=== PATIENT | female | born 1950 | race Caucasian/White ===

== ENCOUNTER 2019-01-31 13:49 | Inpatient (IN) ==
[2019-01-31] MEDS ORDERED: Naloxone 0.4 MG/ML INJ IVP PRN (17:02)
[2019-01-31] MEDS ORDERED: Artificial Tears SOLN 15 ML BOTTLE BOTH EYES PRN (17:21)
[2019-01-31] MEDS ORDERED: *HR* Dextrose 50 % in Water (Syg) 50 ML SYRINGE IVP PRN (17:27)
[2019-01-31] MEDS ORDERED: D5% in Water 1,000 ML IVC PRN (17:27)
[2019-01-31] MEDS ORDERED: Dextrose Gel 15 GM/37.5 ML TUBE PO PRN ×2 (17:27)
[2019-01-31 17:53] LABS: Estimated Average Glucose 117 mg/dl
[2019-01-31] MEDS: FentaNYL (PF) 1,000 MCG in 0.9 % Sodium Chloride 80 ML IVC SCH (18:26)
[2019-01-31] MEDS: Insulin LISPRO 300 UNITS/3 ML VIAL SQ SCH (18:37)
[2019-01-31] MEDS: Famotidine 20 MG/2 ML VIAL IVP SCH (18:38)
[2019-01-31] MEDS: *HR* Heparin 5,000 UNIT/ML VIAL SQ SCH (18:38)
[2019-01-31] MEDS: Piperacillin/Tazobactam 3.375 GM in 0.9 % Sodium Chloride Mini Bag 100 ML IVPB SCH (18:39)
[2019-01-31 18:57] LABS: ABG Base Excess 17 mEq/L (-2 to 3); ABG HCO3 46 mEq/L (21-27); ABG Oxygen Saturation 89 % (95-98); ABG PCO2 69 mmHg (35-45); ABG PH 7.43 pH Units (7.32-7.45); ABG PO2 59 mmHg (85-104); ABG TCO2 48 mEq/L (20-26); Blood Gas VT 500 cc
[2019-01-31 19:03] LABS: Adenovirus Not Detected (Not Detect); Bordetella Pertussis Not Detected (Not Detect); Chlamydophila pneumoniae Not Detected (Not Detect); Coronavirus 229E Not Detected (Not Detect); Coronavirus HKU1 Not Detected (Not Detect); Coronavirus NL63 Not Detected (Not Detect); Coronavirus OC43 Not Detected (Not Detect); Human Metapneumovirus Not Detected (Not Detect); Human Rhinovirus/Enterovirus Not Detected (Not Detect); Influenza A Subtype 2009 H1 Not Detected (Not Detect); Influenza A Untypeable Not Detected (Not Detect); Influenza B Not Detected (Not Detect); Mycoplasma pneumoniae Not Detected (Not Detect); Parainfluenza Virus 1 Not Detected (Not Detect); Parainfluenza Virus 2 Not Detected (Not Detect); Parainfluenza Virus 3 Not Detected (Not Detect); Parainfluenza Virus 4 Not Detected (Not Detect); Respiratory Syncytial Virus Not Detected (Not Detect)
[2019-01-31] MEDS: Chlorhexidine Rinse 15 ML MOUTHWASH MM SCH (22:17)
[2019-01-31] MEDS: Artificial Tears SOLN 15 ML BOTTLE BOTH EYES SCH (22:17)
[2019-02-01] MEDS: Artificial Tears SOLN 15 ML BOTTLE BOTH EYES SCH ×7 (00:31→23:09)
[2019-02-01] MEDS: Piperacillin/Tazobactam 3.375 GM in 0.9 % Sodium Chloride Mini Bag 100 ML IVPB SCH ×4 (00:32→23:09)
[2019-02-01] MEDS: MethylPREDNISolone 40 MG/ML VIAL IVP SCH ×4 (00:32→23:09)
[2019-02-01] MEDS: Insulin LISPRO 300 UNITS/3 ML VIAL SQ SCH ×5 (00:32→23:09)
[2019-02-01 05:05] LABS: ABG Base Excess 15 mEq/L (-2 to 3); ABG HCO3 43 mEq/L (21-27); ABG Oxygen Saturation 90 % (95-98); ABG PCO2 68 mmHg (35-45); ABG PH 7.41 pH Units (7.32-7.45); ABG PO2 62 mmHg (85-104); ABG TCO2 45 mEq/L (20-26); Blood Gas Modality ASSIST CONTROL; Blood Gas VT 450 cc
[2019-02-01] MEDS: Famotidine 20 MG/2 ML VIAL IVP SCH ×2 (06:38→15:58)
[2019-02-01] MEDS: *HR* Heparin 5,000 UNIT/ML VIAL SQ SCH ×2 (06:38→15:58)
[2019-02-01] MEDS: Chlorhexidine Rinse 15 ML MOUTHWASH MM SCH ×2 (07:15→20:01)
[2019-02-01 07:46] LABS: Basophils % 0.2 %; Hematocrit 41.4 % (35.3-44.9); Hemoglobin 12.9 g/dL (11.5-15.4); Immature Granulocytes % 0.4 % (0-4); Lymphocytes # 0.6 K/mcL (0.6-4.6); Lymphocytes % 10.6 %; Mean Corpuscular HGB Conc 31.2 g/dL (31.6-35.5); Mean Corpuscular Hemoglobin 30.1 pg (28.0-33.3); Mean Corpuscular Volume 96.7 fL (83.0-100.0); Mean Platelet Volume 9.8 fL (9.4-12.4); Monocytes # 0.3 K/mcL (0.0-1.3); Monocytes % 5.9 %; Neutrophils # 4.6 K/mcL (1.6-8.9); Platelet Count 170 K/mcL (140-400); Red Blood Count 4.28 M/mcL (3.82-4.97); Red Cell Distribution Width 12.5 % (11.5-14.5); Segmented Neutrophils % 82.9 %; White Blood Count 5.6 K/mcL (4.3-11.1)
[2019-02-01 08:14] LABS: Large Platelets Present (Not Present); Platelet Estimate Normal (Normal); Toxic Granulation Present (Not Present)
[2019-02-01 09:47] LABS: BUN/Creatinine Ratio 40 (6-26); Blood Urea Nitrogen 22 mg/dL (8-23); Calcium 10.1 mg/dL (8.6-10.3); Carbon Dioxide 41 mEq/L (23-29); Chloride 90 mEq/L (98-107); Glucose 122 mg/dL (70-105); Magnesium 1.5 mg/dL (1.6-2.6); Osmolality,Calculated 291 (280-300); Sodium 138 mEq/L (136-145); eGFR For African Americans > 60 (> 60); eGFR For Non-African Americans > 60 (> 60)
[2019-02-01] MEDS ORDERED: Furosemide 20 MG/2 ML VIAL IVP ONE (14:41)
[2019-02-01] MEDS: Furosemide 20 MG/2 ML VIAL IVP SCH (15:02)
[2019-02-01] MEDS: FentaNYL (PF) 1,000 MCG in 0.9 % Sodium Chloride 80 ML IVC SCH ×2 (15:58→18:43)
[2019-02-02] MEDS: Artificial Tears SOLN 15 ML BOTTLE BOTH EYES SCH ×5 (03:09→20:49)
[2019-02-02] MEDS: FentaNYL (PF) 1,000 MCG in 0.9 % Sodium Chloride 80 ML IVC SCH (04:02)
[2019-02-02 04:46] LABS: ABG Base Excess 18 mEq/L (-2 to 3); ABG HCO3 44 mEq/L (21-27); ABG Oxygen Saturation 94 % (95-98); ABG PCO2 60 mmHg (35-45); ABG PH 7.48 pH Units (7.32-7.45); ABG PO2 69 mmHg (85-104); ABG TCO2 46 mEq/L (20-26); Blood Gas Modality ASSIST CONTROL; Blood Gas VT 420 cc
[2019-02-02 05:11] LABS: Basophils % 0.4 %; Hematocrit 37.6 % (35.3-44.9); Immature Granulocytes % 0.9 % (0-4); Lymphocytes # 0.6 K/mcL (0.6-4.6); Lymphocytes % 10.1 %; Mean Corpuscular HGB Conc 31.9 g/dL (31.6-35.5); Mean Corpuscular Hemoglobin 29.9 pg (28.0-33.3); Mean Corpuscular Volume 93.5 fL (83.0-100.0); Mean Platelet Volume 9.8 fL (9.4-12.4); Monocytes # 0.3 K/mcL (0.0-1.3); Monocytes % 5.8 %; Neutrophils # 4.6 K/mcL (1.6-8.9); Nucleated Red Blood Cells 0.4 /100 WBC (0); Platelet Count 187 K/mcL (140-400); Red Blood Count 4.02 M/mcL (3.82-4.97); Red Cell Distribution Width 12.7 % (11.5-14.5); Segmented Neutrophils % 82.8 %; White Blood Count 5.5 K/mcL (4.3-11.1)
[2019-02-02 05:16] LABS: Adenovirus Not Detected (Not Detect); Bordetella Pertussis Not Detected (Not Detect); Chlamydophila pneumoniae Not Detected (Not Detect); Coronavirus 229E Not Detected (Not Detect); Coronavirus HKU1 Not Detected (Not Detect); Coronavirus NL63 Not Detected (Not Detect); Coronavirus OC43 Not Detected (Not Detect); Human Metapneumovirus Not Detected (Not Detect); Human Rhinovirus/Enterovirus Not Detected (Not Detect); Influenza A Subtype 2009 H1 Not Detected (Not Detect); Influenza A Untypeable Not Detected (Not Detect); Influenza B Not Detected (Not Detect); Mycoplasma pneumoniae Not Detected (Not Detect); Parainfluenza Virus 1 Not Detected (Not Detect); Parainfluenza Virus 2 Not Detected (Not Detect); Parainfluenza Virus 3 Not Detected (Not Detect); Parainfluenza Virus 4 Not Detected (Not Detect); Respiratory Syncytial Virus Not Detected (Not Detect)
[2019-02-02] MEDS: Insulin LISPRO 300 UNITS/3 ML VIAL SQ SCH ×3 (05:18→19:48)
[2019-02-02] MEDS: Famotidine 20 MG/2 ML VIAL IVP SCH ×2 (05:21→16:32)
[2019-02-02] MEDS: *HR* Heparin 5,000 UNIT/ML VIAL SQ SCH ×2 (05:21→16:32)
[2019-02-02 05:32] LABS: BUN/Creatinine Ratio 48 (6-26); Blood Urea Nitrogen 28 mg/dL (8-23); Calcium 9.8 mg/dL (8.6-10.3); Carbon Dioxide 41 mEq/L (23-29); Chloride 90 mEq/L (98-107); Glucose 193 mg/dL (70-105); Osmolality,Calculated 295 (280-300); Potassium 3.3 mEq/L (3.5-5.1); Sodium 137 mEq/L (136-145); eGFR For African Americans > 60 (> 60); eGFR For Non-African Americans > 60 (> 60)
[2019-02-02] MEDS: Dexmedetomidine HCl 400 MCG/100 ML MLS IVC SCH (06:02)
[2019-02-02] MEDS ORDERED: Dexmedetomidine HCl 400 MCG/100 ML MLS IVC ONE (06:02)
[2019-02-02] MEDS ORDERED: Potassium Chloride Elixir 20 MEQ/15 ML UDC PO ONE (09:01)
[2019-02-02] MEDS: Chlorhexidine Rinse 15 ML MOUTHWASH MM SCH ×2 (09:27→21:07)
[2019-02-02] MEDS: Furosemide 20 MG/2 ML VIAL IVP SCH (09:28)
[2019-02-02] MEDS: MethylPREDNISolone 40 MG/ML VIAL IVP SCH ×3 (09:28→23:26)
[2019-02-02] MEDS: Piperacillin/Tazobactam 3.375 GM in 0.9 % Sodium Chloride Mini Bag 100 ML IVPB SCH ×3 (09:28→23:26)
[2019-02-02] MEDS ORDERED: Furosemide 20 MG/2 ML VIAL IVP SCH (11:01)
[2019-02-02] MEDS ORDERED: Gabapentin 300 MG CAPSULE PO SCH (21:00)
[2019-02-02] MEDS ORDERED: Furosemide 20 MG/2 ML VIAL IVP ONE (22:01)
[2019-02-02] MEDS: *HR* HYDROcodone/Acet 7.5/325 mg TABLET PO PRN (23:26)
[2019-02-02 23:47] LABS: BUN/Creatinine Ratio 47 (6-26); Blood Urea Nitrogen 28 mg/dL (8-23); Calcium 10.1 mg/dL (8.6-10.3); Carbon Dioxide 40 mEq/L (23-29); Chloride 93 mEq/L (98-107); Glucose 111 mg/dL (70-105); Osmolality,Calculated 296 (280-300); Sodium 140 mEq/L (136-145); eGFR For African Americans > 60 (> 60); eGFR For Non-African Americans > 60 (> 60)
[2019-02-03] MEDS: Artificial Tears SOLN 15 ML BOTTLE BOTH EYES SCH ×3 (02:13→11:34)
[2019-02-03] MEDS: Famotidine 20 MG/2 ML VIAL IVP SCH ×2 (05:27→17:50)
[2019-02-03] MEDS: Insulin LISPRO 300 UNITS/3 ML VIAL SQ SCH ×4 (05:27→20:38)
[2019-02-03] MEDS: *HR* Heparin 5,000 UNIT/ML VIAL SQ SCH ×2 (05:27→17:49)
[2019-02-03 05:28] LABS: Basophils % 0.5 %; Eosinophils % 0.1 %; Hematocrit 41.4 % (35.3-44.9); Immature Granulocytes % 1.3 % (0-4); Lymphocytes # 0.7 K/mcL (0.6-4.6); Lymphocytes % 8.8 %; Mean Corpuscular HGB Conc 33.3 g/dL (31.6-35.5); Mean Corpuscular Hemoglobin 29.7 pg (28.0-33.3); Mean Corpuscular Volume 89.2 fL (83.0-100.0); Monocytes % 5.3 %; Platelet Count 209 K/mcL (140-400); Red Blood Count 4.64 M/mcL (3.82-4.97); Red Cell Distribution Width 12.7 % (11.5-14.5)
[2019-02-03] MEDS: Dexmedetomidine HCl 400 MCG/100 ML MLS IVC SCH (05:36)
[2019-02-03 05:37] LABS: Hemoglobin 13.8 g/dL (11.5-15.4); Monocytes # 0.5 K/mcL (0.0-1.3); Neutrophils # 7.1 K/mcL (1.6-8.9); White Blood Count 8.4 K/mcL (4.3-11.1)
[2019-02-03 06:02] LABS: BUN/Creatinine Ratio 49 (6-26); Blood Urea Nitrogen 28 mg/dL (8-23); Calcium 10.2 mg/dL (8.6-10.3); Carbon Dioxide 41 mEq/L (23-29); Chloride 92 mEq/L (98-107); Glucose 112 mg/dL (70-105); Osmolality,Calculated 300 (280-300); Potassium 4.2 mEq/L (3.5-5.1); Sodium 142 mEq/L (136-145); eGFR For African Americans > 60 (> 60); eGFR For Non-African Americans > 60 (> 60)
[2019-02-03] MEDS: Piperacillin/Tazobactam 3.375 GM in 0.9 % Sodium Chloride Mini Bag 100 ML IVPB SCH ×3 (08:38→23:26)
[2019-02-03] MEDS: Furosemide 20 MG/2 ML VIAL IVP SCH ×2 (08:39→16:21)
[2019-02-03] MEDS: *HR* HYDROcodone/Acet 7.5/325 mg TABLET PO PRN ×2 (08:39→16:52)
[2019-02-03] MEDS: MethylPREDNISolone 40 MG/ML VIAL IVP SCH (08:39)
[2019-02-03] MEDS: Chlorhexidine Rinse 15 ML MOUTHWASH MM SCH (11:34)
[2019-02-03] MEDS ORDERED: Dextrose Gel 15 GM/37.5 ML TUBE PO PRN ×2 (11:43)
[2019-02-03] MEDS ORDERED: Artificial Tears SOLN 15 ML BOTTLE BOTH EYES PRN (11:43)
[2019-02-03] MEDS ORDERED: Naloxone 0.4 MG/ML INJ IVP PRN (11:43)
[2019-02-03] MEDS ORDERED: Insulin LISPRO 300 UNITS/3 ML VIAL SQ SCH (12:00)
[2019-02-03] MEDS ORDERED: Furosemide 20 MG/2 ML VIAL IVP SCH (17:00)
[2019-02-03] MEDS: GuaiFENesin Liq 200 MG/10 ML UDC PO PRN (18:05)
[2019-02-03] MEDS: Gabapentin 300 MG CAPSULE PO SCH (20:36)
[2019-02-03] MEDS: Ondansetron 4 MG/2 ML VIAL IVP PRN (23:27)
[2019-02-04] MEDS: *HR* HYDROcodone/Acet 7.5/325 mg TABLET PO PRN ×3 (00:28→19:51)
[2019-02-04] MEDS: Famotidine 20 MG/2 ML VIAL IVP SCH (05:18)
[2019-02-04] MEDS: *HR* Heparin 5,000 UNIT/ML VIAL SQ SCH ×2 (05:18→18:03)
[2019-02-04 06:17] LABS: BUN/Creatinine Ratio 30 (6-26); Blood Urea Nitrogen 21 mg/dL (8-23); Calcium 9.4 mg/dL (8.6-10.3); Carbon Dioxide 44 mEq/L (23-29); Chloride 87 mEq/L (98-107); Glucose 91 mg/dL (70-105); Osmolality,Calculated 287 (280-300); Potassium 3.9 mEq/L (3.5-5.1); Sodium 137 mEq/L (136-145); eGFR For African Americans > 60 (> 60); eGFR For Non-African Americans > 60 (> 60)
[2019-02-04] MEDS ORDERED: ALPRAZolam 0.5 MG TABLET PO PRN (07:41)
[2019-02-04 08:33] LABS: Hematocrit 40.6 % (35.3-44.9); Hemoglobin 14.1 g/dL (11.5-15.4); Mean Corpuscular HGB Conc 34.7 g/dL (31.6-35.5); Mean Corpuscular Hemoglobin 30.2 pg (28.0-33.3); Mean Corpuscular Volume 86.9 fL (83.0-100.0); Mean Platelet Volume 10.2 fL (9.4-12.4); Platelet Count 217 K/mcL (140-400); Red Blood Count 4.67 M/mcL (3.82-4.97); Red Cell Distribution Width 12.7 % (11.5-14.5); White Blood Count 8.8 K/mcL (4.3-11.1)
[2019-02-04 08:34] LABS: Lymphocytes # 2.8 K/mcL (0.6-4.6)
[2019-02-04] MEDS: Insulin LISPRO 300 UNITS/3 ML VIAL SQ SCH ×4 (08:37→21:39)
[2019-02-04 08:39] LABS: Monocytes # 0.5 K/mcL (0.0-1.3); Neutrophils # 5.5 K/mcL (1.6-8.9); Reactive Lymphocytes Present (Not Present)
[2019-02-04 08:40] LABS: Toxic Granulation Present (Not Present)
[2019-02-04 08:41] LABS: Basophilic Stippling 1+ (Not Present); Platelet Estimate Normal (Normal)
[2019-02-04] MEDS: Piperacillin/Tazobactam 3.375 GM in 0.9 % Sodium Chloride Mini Bag 100 ML IVPB SCH ×3 (09:05→23:52)
[2019-02-04] MEDS: Ondansetron 4 MG/2 ML VIAL IVP PRN ×2 (09:06→19:51)
[2019-02-04] MEDS: Furosemide 20 MG/2 ML VIAL IVP SCH ×2 (09:06→18:03)
[2019-02-04] MEDS: Metoprolol 100 MG TABLET PO SCH ×2 (09:06→19:51)
[2019-02-04] MEDS: Gabapentin 300 MG CAPSULE PO SCH ×2 (09:06→19:52)
[2019-02-04] MEDS: Aspirin Enteric Coated 325 MG Tablet PO SCH (09:07)
[2019-02-04] MEDS: Cyanocobalamin (B-12) 1,000 MCG TABLET PO SCH (09:07)
[2019-02-04] MEDS: Methylphenidate HCl 10 MG TABLET PO SCH ×2 (10:02→15:06)
[2019-02-04] MEDS: Fluticasone Propionate Nasal 50 MCG/SPRAY BOTTLE NS SCH ×2 (10:02→21:39)
[2019-02-04] MEDS: Budesonide/Formoterol 160/4.5 1 PUFF INH IH SCH ×2 (11:15→19:30)
[2019-02-04] MEDS: GuaiFENesin Liq 200 MG/10 ML UDC PO PRN (15:12)
[2019-02-04] MEDS: MethylPREDNISolone 40 MG/ML VIAL IVP SCH (18:03)
[2019-02-05] MEDS: *HR* Heparin 5,000 UNIT/ML VIAL SQ SCH ×2 (05:59→17:27)
[2019-02-05] MEDS: MethylPREDNISolone 40 MG/ML VIAL IVP SCH ×2 (05:59→17:27)
[2019-02-05 06:35] LABS: BUN/Creatinine Ratio 30 (6-26); Blood Urea Nitrogen 19 mg/dL (8-23); Calcium 9.4 mg/dL (8.6-10.3); Carbon Dioxide 45 mEq/L (23-29); Chloride 87 mEq/L (98-107); Glucose 141 mg/dL (70-105); Magnesium 1.6 mg/dL (1.6-2.6); Osmolality,Calculated 289 (280-300); Sodium 137 mEq/L (136-145); eGFR For African Americans > 60 (> 60); eGFR For Non-African Americans > 60 (> 60)
[2019-02-05] MEDS: Budesonide/Formoterol 160/4.5 1 PUFF INH IH SCH ×2 (07:48→23:29)
[2019-02-05] MEDS: Insulin LISPRO 300 UNITS/3 ML VIAL SQ SCH ×4 (08:06→20:43)
[2019-02-05] MEDS: Furosemide 20 MG/2 ML VIAL IVP SCH ×2 (09:50→17:27)
[2019-02-05] MEDS: Methylphenidate HCl 10 MG TABLET PO SCH ×2 (09:50→12:16)
[2019-02-05] MEDS: Aspirin Enteric Coated 325 MG Tablet PO SCH (09:51)
[2019-02-05] MEDS: Cyanocobalamin (B-12) 1,000 MCG TABLET PO SCH (09:51)
[2019-02-05] MEDS: Piperacillin/Tazobactam 3.375 GM in 0.9 % Sodium Chloride Mini Bag 100 ML IVPB SCH (09:51)
[2019-02-05] MEDS: Metoprolol 100 MG TABLET PO SCH ×2 (09:51→20:43)
[2019-02-05] MEDS: Gabapentin 300 MG CAPSULE PO SCH ×2 (09:51→20:42)
[2019-02-05] MEDS: Fluticasone Propionate Nasal 50 MCG/SPRAY BOTTLE NS SCH (09:51)
[2019-02-05] MEDS ORDERED: Insulin DETEMIR 100 UNIT/ML X5UNITS SQ SCH (21:00)
[2019-02-06 05:02] LABS: Basophils # 0.1 K/mcL (0.0-0.2); Basophils % 0.4 %; Eosinophils % 0.1 %; Hematocrit 45.2 % (35.3-44.9); Hemoglobin 14.7 g/dL (11.5-15.4); Immature Granulocytes % 4.4 % (0-4); Lymphocytes # 1.8 K/mcL (0.6-4.6); Lymphocytes % 16.3 %; Mean Corpuscular HGB Conc 32.5 g/dL (31.6-35.5); Mean Corpuscular Hemoglobin 29.5 pg (28.0-33.3); Mean Corpuscular Volume 90.6 fL (83.0-100.0); Mean Platelet Volume 9.9 fL (9.4-12.4); Monocytes # 0.9 K/mcL (0.0-1.3); Monocytes % 7.7 %; Platelet Count 213 K/mcL (140-400); Red Blood Count 4.99 M/mcL (3.82-4.97); Red Cell Distribution Width 12.5 % (11.5-14.5); Segmented Neutrophils % 71.1 %; White Blood Count 11.3 K/mcL (4.3-11.1)
[2019-02-06] MEDS: Fluticasone Propionate Nasal 50 MCG/SPRAY BOTTLE NS SCH ×2 (05:09→08:45)
[2019-02-06 05:18] LABS: BUN/Creatinine Ratio 48 (6-26); Blood Urea Nitrogen 24 mg/dL (8-23); Calcium 9.7 mg/dL (8.6-10.3); Carbon Dioxide 42 mEq/L (23-29); Chloride 89 mEq/L (98-107); Glucose 117 mg/dL (70-105); Magnesium 1.6 mg/dL (1.6-2.6); Osmolality,Calculated 287 (280-300); Potassium 3.6 mEq/L (3.5-5.1); Sodium 136 mEq/L (136-145); eGFR For African Americans > 60 (> 60); eGFR For Non-African Americans > 60 (> 60)
[2019-02-06] MEDS: *HR* HYDROcodone/Acet 7.5/325 mg TABLET PO PRN ×2 (05:33→11:52)
[2019-02-06] MEDS: MethylPREDNISolone 40 MG/ML VIAL IVP SCH (05:33)
[2019-02-06] MEDS: *HR* Heparin 5,000 UNIT/ML VIAL SQ SCH (05:34)
[2019-02-06 07:23] VITALS: BP 146/84
[2019-02-06] MEDS: Budesonide/Formoterol 160/4.5 1 PUFF INH IH SCH (07:28)
[2019-02-06] MEDS: Insulin LISPRO 300 UNITS/3 ML VIAL SQ SCH ×2 (07:56→11:47)
[2019-02-06] MEDS: Furosemide 20 MG/2 ML VIAL IVP SCH (08:43)
[2019-02-06] MEDS: Aspirin Enteric Coated 325 MG Tablet PO SCH (08:44)
[2019-02-06] MEDS: Metoprolol 100 MG TABLET PO SCH (08:44)
[2019-02-06] MEDS: Methylphenidate HCl 10 MG TABLET PO SCH ×2 (08:44→12:19)
[2019-02-06] MEDS: Cyanocobalamin (B-12) 1,000 MCG TABLET PO SCH (08:45)
[2019-02-06] MEDS: Gabapentin 300 MG CAPSULE PO SCH (08:45)
[2019-02-06] MEDS ORDERED: levoFLOXacin 750 MG TABLET PO SCH (09:00)
== END 2019-02-06 17:11 | disposition home health service (06) | DRG 133 ==
LOC: SUATTDRO 16:57 → ICNU 16:57 → 2NENU 02-03 15:03
PROVIDERS: ADMIT Internal Medicine Pulmonary Disease; ATTEND Internal Medicine

== ENCOUNTER 2019-07-17 14:20 | Inpatient (IN) ==
[2019-07-17] MEDS ORDERED: Acetaminophen 325 MG TABLET PO PRN (17:29)
[2019-07-17] MEDS ORDERED: Ondansetron 4 MG/2 ML VIAL IVP PRN (17:29)
[2019-07-17] MEDS ORDERED: Naloxone 0.4 MG/ML INJ IVP PRN (17:29)
[2019-07-17] MEDS ORDERED: *HR* Heparin 5,000 UNIT/ML VIAL IVP PRN ×2 (17:41→17:49)
[2019-07-17] MEDS ORDERED: Nitroglycerin 0.4 MG TAB.SUBL SL PRN (18:00)
[2019-07-17] MEDS: Heparin 25,000 UNIT/250 ML D5W 25,000 UNIT/250 ML IV.SOLN IVC SCH (18:33)
[2019-07-17] MEDS ORDERED: Isovue-370 500 ML BOTTLE IVP ONE (18:46)
[2019-07-17] MEDS ORDERED: Levalbuterol Neb 0.63 MG/3 ML IH PRN (19:25)
[2019-07-17] MEDS ORDERED: *HR* Dextrose 50 % in Water (Syg) 50 ML SYRINGE IVP PRN (19:27)
[2019-07-17] MEDS ORDERED: D5% in Water 1,000 ML IVC PRN (19:27)
[2019-07-17] MEDS ORDERED: Dextrose Gel 15 GM/37.5 ML TUBE PO PRN ×2 (19:27)
[2019-07-17 21:03] LABS: Hematocrit 46.9 % (35.3-44.9); Hemoglobin 13.9 g/dL (11.5-15.4); Mean Corpuscular HGB Conc 29.6 g/dL (31.6-35.5); Mean Corpuscular Hemoglobin 29.4 pg (28.0-33.3); Mean Corpuscular Volume 99.2 fL (83.0-100.0); Mean Platelet Volume 9.1 fL (9.4-12.4); Platelet Count 164 K/mcL (140-400); Red Blood Count 4.73 M/mcL (3.82-4.97); Red Cell Distribution Width 12.6 % (11.5-14.5); White Blood Count 5.9 K/mcL (4.3-11.1)
[2019-07-17 21:07] LABS: Heparin anti-factor XA UFH 0.31 IU/mL (0.30-0.70); Prothrombin Time 11.6 Seconds (9.4-12.1)
[2019-07-17 21:34] LABS: Troponin I < 0.03 ng/mL (< 0.04)
[2019-07-17 21:57] LABS: BUN/Creatinine Ratio 29 (6-26); Blood Urea Nitrogen 14 mg/dL (8-23); Calcium 9.4 mg/dL (8.6-10.3); Carbon Dioxide 34 mEq/L (23-29); Chloride 96 mEq/L (98-107); Glucose 114 mg/dL (70-105); Magnesium 1.8 mg/dL (1.6-2.6); Osmolality,Calculated 291 (280-300); Potassium 4.2 mEq/L (3.5-5.1); Sodium 140 mEq/L (136-145); eGFR For African Americans > 60 (> 60); eGFR For Non-African Americans > 60 (> 60)
[2019-07-17] MEDS: Insulin LISPRO 300 UNITS/3 ML VIAL SQ SCH (22:19)
[2019-07-17] MEDS: polyethylene glycoL 3350 17 GM POWD.PACK PO SCH (22:23)
[2019-07-17] MEDS: Sennosides/Docusate Sodium TABLET PO SCH (22:23)
[2019-07-18 05:44] LABS: Monocytes % 8.8 %; Red Cell Distribution Width 12.7 % (11.5-14.5)
[2019-07-18 05:45] LABS: Basophils % 0.4 %; Eosinophils # 0.1 K/mcL (0.0-0.6); Eosinophils % 2.1 %; Hematocrit 41.6 % (35.3-44.9); Hemoglobin 12.2 g/dL (11.5-15.4); Immature Granulocytes % 0.6 % (0-4); Lymphocytes # 1.4 K/mcL (0.6-4.6); Lymphocytes % 21.4 %; Mean Corpuscular HGB Conc 29.3 g/dL (31.6-35.5); Mean Corpuscular Hemoglobin 29.3 pg (28.0-33.3); Mean Corpuscular Volume 99.8 fL (83.0-100.0); Mean Platelet Volume 9.5 fL (9.4-12.4); Monocytes # 0.6 K/mcL (0.0-1.3); Neutrophils # 4.5 K/mcL (1.6-8.9); Platelet Count 226 K/mcL (140-400); Red Blood Count 4.17 M/mcL (3.82-4.97); Segmented Neutrophils % 66.7 %; White Blood Count 6.7 K/mcL (4.3-11.1)
[2019-07-18 05:55] LABS: VBG HCO3 47 mEq/L (21-27); VBG PCO2 96 mmHg (41-51); VBG PO2 92 mmHg (25-50)
[2019-07-18 05:58] LABS: Platelet Estimate Normal (Normal)
[2019-07-18 06:05] LABS: BUN/Creatinine Ratio 29 (6-26); Blood Urea Nitrogen 12 mg/dL (8-23); Calcium 9.7 mg/dL (8.6-10.3); Carbon Dioxide > 45 mEq/L (23-29); Chloride 95 mEq/L (98-107); Glucose 104 mg/dL (70-105); Magnesium 1.6 mg/dL (1.6-2.6); Osmolality,Calculated 294 (280-300); Sodium 142 mEq/L (136-145); eGFR For African Americans > 60 (> 60); eGFR For Non-African Americans > 60 (> 60)
[2019-07-18] MEDS ORDERED: Albuterol 2.5 MG/3 ML NEBULIZER IH PRN (09:35)
[2019-07-18] MEDS ORDERED: Budesonide/Formoterol 160/4.5 1 PUFF INH IH SCH (10:00)
[2019-07-18] MEDS: polyethylene glycoL 3350 17 GM POWD.PACK PO SCH (10:11)
[2019-07-18] MEDS: Sennosides/Docusate Sodium TABLET PO SCH ×2 (10:11→21:02)
[2019-07-18] MEDS: Insulin LISPRO 300 UNITS/3 ML VIAL SQ SCH ×4 (10:24→21:01)
[2019-07-18] MEDS ORDERED: methylPREDNISolone 125 MG/2 ML VIAL IVP ONE (10:36)
[2019-07-18] MEDS: Metoprolol XL (24 HR) Succ 50 MG TAB.ER.24H PO SCH (10:51)
[2019-07-18] MEDS: Aspirin 81 MG TAB.CHEW PO SCH (10:51)
[2019-07-18] MEDS: Furosemide 20 MG TABLET PO SCH ×2 (10:52→18:43)
[2019-07-18] MEDS: Ipratropium/Albuterol Neb 3 ML IH SCH ×3 (11:09→21:36)
[2019-07-18] MEDS: *HR* HYDROcodone/Acet 7.5/325 mg TABLET PO SCH ×2 (12:16→18:42)
[2019-07-18] MEDS ORDERED: Furosemide 20 MG/2 ML VIAL IVP ONE (12:16)
[2019-07-18 18:56] LABS: VBG HCO3 48 mEq/L (21-27); VBG PCO2 81 mmHg (41-51); VBG PH 7.38 pH Units (7.32-7.42); VBG PO2 185 mmHg (25-50)
[2019-07-18] MEDS: ALPRAZolam 0.5 MG TABLET PO PRN (21:02)
[2019-07-18] MEDS: Methylphenidate HCl 10 MG TABLET PO SCH (21:03)
[2019-07-18] MEDS: *HR* Rivaroxaban 10 MG TABLET PO SCH (21:03)
[2019-07-18] MEDS: Fluticasone Propionate Nasal 50 MCG/SPRAY BOTTLE NS SCH (21:05)
[2019-07-18] MEDS: Heparin 25,000 UNIT/250 ML D5W 25,000 UNIT/250 ML IV.SOLN IVC SCH (21:13)
[2019-07-19] MEDS: *HR* HYDROcodone/Acet 7.5/325 mg TABLET PO SCH ×4 (04:00→20:07)
[2019-07-19] MEDS: Ipratropium/Albuterol Neb 3 ML IH SCH ×4 (04:26→21:30)
[2019-07-19 06:23] LABS: Basophils % 0.2 %; Eosinophils % 0.7 %; Hemoglobin 11.7 g/dL (11.5-15.4); Immature Granulocytes % 0.2 % (0-4); Lymphocytes # 1.4 K/mcL (0.6-4.6); Lymphocytes % 30.9 %; Mean Corpuscular Hemoglobin 28.8 pg (28.0-33.3); Mean Corpuscular Volume 96.1 fL (83.0-100.0); Mean Platelet Volume 9.4 fL (9.4-12.4); Monocytes # 0.4 K/mcL (0.0-1.3); Monocytes % 8.6 %; Neutrophils # 2.6 K/mcL (1.6-8.9); Platelet Count 237 K/mcL (140-400); Red Blood Count 4.06 M/mcL (3.82-4.97); Red Cell Distribution Width 12.4 % (11.5-14.5); Segmented Neutrophils % 59.4 %; White Blood Count 4.4 K/mcL (4.3-11.1)
[2019-07-19 07:12] LABS: BUN/Creatinine Ratio 27 (6-26); Blood Urea Nitrogen 12 mg/dL (8-23); Calcium 9.3 mg/dL (8.6-10.3); Carbon Dioxide > 45 mEq/L (23-29); Chloride 86 mEq/L (98-107); Glucose 73 mg/dL (70-105); Magnesium 1.3 mg/dL (1.6-2.6); Osmolality,Calculated 288 (280-300); Potassium 3.3 mEq/L (3.5-5.1); Sodium 140 mEq/L (136-145); eGFR For African Americans > 60 (> 60); eGFR For Non-African Americans > 60 (> 60)
[2019-07-19] MEDS: Insulin LISPRO 300 UNITS/3 ML VIAL SQ SCH (08:09)
[2019-07-19] MEDS: Methylphenidate HCl 10 MG TABLET PO SCH ×2 (08:20→20:08)
[2019-07-19] MEDS: Metoprolol XL (24 HR) Succ 50 MG TAB.ER.24H PO SCH (08:20)
[2019-07-19] MEDS: polyethylene glycoL 3350 17 GM POWD.PACK PO SCH (08:20)
[2019-07-19] MEDS: Sennosides/Docusate Sodium TABLET PO SCH (08:20)
[2019-07-19] MEDS: Aspirin 81 MG TAB.CHEW PO SCH (08:20)
[2019-07-19] MEDS: Fluticasone Propionate Nasal 50 MCG/SPRAY BOTTLE NS SCH ×2 (08:21→20:08)
[2019-07-19] MEDS: predniSONE 20 MG TABLET PO SCH (08:21)
[2019-07-19] MEDS: Furosemide 20 MG TABLET PO SCH ×3 (08:21→15:56)
[2019-07-19] MEDS: ALPRAZolam 0.5 MG TABLET PO PRN (08:55)
[2019-07-19] MEDS: Magnesium Oxide 400 MG TABLET PO SCH ×2 (11:25→20:07)
[2019-07-19] MEDS: *HR* Rivaroxaban 10 MG TABLET PO SCH (15:44)
[2019-07-19] MEDS ORDERED: Perflutren Lipid Microsphere 1.3 ML in 0.9 % Sodium Chloride 8.7 ML IVP ONE (18:54)
[2019-07-20 02:41] LABS: Basophils % 0.3 %; Eosinophils % 0.3 %; Hemoglobin 11.4 g/dL (11.5-15.4); Immature Granulocytes % 0.2 % (0-4); Lymphocytes # 1.9 K/mcL (0.6-4.6); Lymphocytes % 30.6 %; Mean Corpuscular Hemoglobin 28.9 pg (28.0-33.3); Mean Corpuscular Volume 96.4 fL (83.0-100.0); Mean Platelet Volume 9.5 fL (9.4-12.4); Monocytes # 0.5 K/mcL (0.0-1.3); Monocytes % 7.7 %; Neutrophils # 3.7 K/mcL (1.6-8.9); Platelet Count 249 K/mcL (140-400); Red Blood Count 3.94 M/mcL (3.82-4.97); Red Cell Distribution Width 12.5 % (11.5-14.5); Segmented Neutrophils % 60.9 %; White Blood Count 6.1 K/mcL (4.3-11.1)
[2019-07-20 02:59] LABS: BUN/Creatinine Ratio 32 (6-26); Blood Urea Nitrogen 16 mg/dL (8-23); Calcium 9.2 mg/dL (8.6-10.3); Carbon Dioxide > 45 mEq/L (23-29); Chloride 90 mEq/L (98-107); Glucose 117 mg/dL (70-105); Osmolality,Calculated 294 (280-300); Potassium 4.3 mEq/L (3.5-5.1); Sodium 141 mEq/L (136-145); eGFR For African Americans > 60 (> 60); eGFR For Non-African Americans > 60 (> 60)
[2019-07-20] MEDS: Ipratropium/Albuterol Neb 3 ML IH SCH ×2 (03:26→10:47)
[2019-07-20 07:11] VITALS: BP 104/64
[2019-07-20] MEDS: Furosemide 20 MG TABLET PO SCH (08:34)
[2019-07-20] MEDS: *HR* HYDROcodone/Acet 7.5/325 mg TABLET PO SCH (08:34)
[2019-07-20] MEDS: Aspirin 81 MG TAB.CHEW PO SCH (08:35)
[2019-07-20] MEDS: predniSONE 20 MG TABLET PO SCH (08:35)
[2019-07-20] MEDS: Metoprolol XL (24 HR) Succ 50 MG TAB.ER.24H PO SCH (08:35)
[2019-07-20] MEDS: Fluticasone Propionate Nasal 50 MCG/SPRAY BOTTLE NS SCH (08:35)
[2019-07-20] MEDS: polyethylene glycoL 3350 17 GM POWD.PACK PO SCH (08:35)
[2019-07-20] MEDS: Magnesium Oxide 400 MG TABLET PO SCH (08:35)
[2019-07-20] MEDS: Methylphenidate HCl 10 MG TABLET PO SCH (08:35)
== END 2019-07-20 10:54 | disposition home health service (06) | DRG 194 ==
LOC: OBSVTOIN 16:53 → 2ANU 16:53 → SUATTDRO 16:53 → INTOOBSV 16:53
PROVIDERS: ADMIT Family Medicine; ATTEND Internal Medicine

== ENCOUNTER 2019-11-11 04:12 | Inpatient (IN) ==
[2019-11-11 07:47] LABS: Adenovirus Not Detected (Not Detect); Bordetella Pertussis Not Detected (Not Detect); Chlamydophila pneumoniae Not Detected (Not Detect); Coronavirus 229E Not Detected (Not Detect); Coronavirus HKU1 Not Detected (Not Detect); Coronavirus NL63 Not Detected (Not Detect); Coronavirus OC43 Not Detected (Not Detect); Human Metapneumovirus Not Detected (Not Detect); Human Rhinovirus/Enterovirus Not Detected (Not Detect); Influenza A Subtype 2009 H1 Not Detected (Not Detect); Influenza B Not Detected (Not Detect); Mycoplasma pneumoniae Not Detected (Not Detect); Parainfluenza Virus 1 Not Detected (Not Detect); Parainfluenza Virus 2 Not Detected (Not Detect); Parainfluenza Virus 3 Not Detected (Not Detect); Parainfluenza Virus 4 Not Detected (Not Detect); Respiratory Syncytial Virus Not Detected (Not Detect)
[2019-11-11] MEDS ORDERED: Dextrose Gel 15 GM/37.5 ML TUBE PO PRN ×2 (08:17)
[2019-11-11] MEDS ORDERED: *HR* Dextrose 50 % in Water (Vial) 50 ML VIAL IVP PRN (08:17)
[2019-11-11] MEDS ORDERED: D5% in Water 1,000 ML IVC PRN (08:17)
[2019-11-11] MEDS ORDERED: Naloxone 0.4 MG/ML INJ IVP PRN (08:18)
[2019-11-11] MEDS ORDERED: Ondansetron 4 MG/2 ML VIAL IVP PRN (08:18)
[2019-11-11] MEDS: Methylphenidate HCl 10 MG TABLET PO SCH ×3 (09:52→17:03)
[2019-11-11] MEDS: Aspirin 81 MG TAB.CHEW PO SCH (09:52)
[2019-11-11] MEDS: Fluticasone Propionate Nasal 50 MCG/SPRAY BOTTLE NS SCH ×2 (09:52→23:39)
[2019-11-11] MEDS: Azithromycin 500 MG in 0.9 % Sodium Chloride 250 ML IVPB SCH (09:53)
[2019-11-11 09:54] LABS: ABG Base Excess 26 mEq/L (-2 to 3); ABG HCO3 58 mEq/L (21-27); ABG Oxygen Saturation 94 % (95-98); ABG PCO2 99 mmHg (35-45); ABG PH 7.38 pH Units (7.32-7.45); ABG PO2 81 mmHg (85-104); ABG TCO2 > 50 mEq/L (20-26)
[2019-11-11] MEDS: Budesonide/Formoterol 160/4.5 1 PUFF INH IH SCH ×2 (09:55→21:58)
[2019-11-11] MEDS: Ipratropium/Albuterol Neb 3 ML IH SCH ×3 (09:55→21:58)
[2019-11-11] MEDS: Insulin LISPRO 300 UNITS/3 ML VIAL SQ SCH ×3 (11:01→20:06)
[2019-11-11 12:33] LABS: BUN/Creatinine Ratio 31 (6-26); Blood Urea Nitrogen 14 mg/dL (8-23); Calcium 9.5 mg/dL (8.6-10.3); Carbon Dioxide 39 mEq/L (23-29); Chloride 92 mEq/L (98-107); Glucose 117 mg/dL (70-105); Osmolality,Calculated 288 (280-300); Sodium 138 mEq/L (136-145); eGFR For African Americans > 60 (> 60); eGFR For Non-African Americans > 60 (> 60)
[2019-11-11] MEDS: methylPREDNISolone 125 MG/2 ML VIAL IVP SCH ×2 (17:02→23:40)
[2019-11-11] MEDS: *HR* Rivaroxaban 10 MG TABLET PO SCH (17:03)
[2019-11-11] MEDS: *HR* HYDROcodone/Acet 7.5/325 mg TABLET PO PRN (20:06)
[2019-11-12] MEDS ORDERED: ALPRAZolam 0.25 MG TABLET PO ONE
[2019-11-12] MEDS: Ipratropium/Albuterol Neb 3 ML IH SCH ×5 (03:35→23:24)
[2019-11-12 04:49] LABS: Hematocrit 35.8 % (35.3-44.9); Hemoglobin 11.3 g/dL (11.5-15.4); Immature Granulocytes % 0.5 % (0-4); Lymphocytes # 0.5 K/mcL (0.6-4.6); Lymphocytes % 11.5 %; Mean Corpuscular HGB Conc 31.6 g/dL (31.6-35.5); Mean Corpuscular Hemoglobin 29.4 pg (28.0-33.3); Mean Corpuscular Volume 93.2 fL (83.0-100.0); Mean Platelet Volume 10.1 fL (9.4-12.4); Monocytes # 0.1 K/mcL (0.0-1.3); Monocytes % 1.2 %; Neutrophils # 3.5 K/mcL (1.6-8.9); Platelet Count 147 K/mcL (140-400); Red Blood Count 3.84 M/mcL (3.82-4.97); Segmented Neutrophils % 86.8 %; White Blood Count 4.1 K/mcL (4.3-11.1)
[2019-11-12 05:12] LABS: BUN/Creatinine Ratio 31 (6-26); Blood Urea Nitrogen 17 mg/dL (8-23); Calcium 9.4 mg/dL (8.6-10.3); Carbon Dioxide 41 mEq/L (23-29); Chloride 86 mEq/L (98-107); Glucose 209 mg/dL (70-105); Osmolality,Calculated 288 (280-300); Potassium 3.5 mEq/L (3.5-5.1); Sodium 135 mEq/L (136-145); eGFR For African Americans > 60 (> 60); eGFR For Non-African Americans > 60 (> 60)
[2019-11-12] MEDS: Folic Acid 1 MG TABLET PO SCH (07:56)
[2019-11-12] MEDS: Methylphenidate HCl 10 MG TABLET PO SCH ×3 (07:56→16:57)
[2019-11-12] MEDS: Aspirin 81 MG TAB.CHEW PO SCH (07:57)
[2019-11-12] MEDS: *HR* HYDROcodone/Acet 7.5/325 mg TABLET PO PRN (07:57)
[2019-11-12] MEDS: Metoprolol XL (24 HR) Succ 50 MG TAB.ER.24H PO SCH (07:57)
[2019-11-12] MEDS: methylPREDNISolone 125 MG/2 ML VIAL IVP SCH ×2 (07:57→20:48)
[2019-11-12] MEDS: Azithromycin 500 MG in 0.9 % Sodium Chloride 250 ML IVPB SCH (07:58)
[2019-11-12] MEDS: Insulin LISPRO 300 UNITS/3 ML VIAL SQ SCH ×4 (08:04→22:27)
[2019-11-12] MEDS: Fluticasone Propionate Nasal 50 MCG/SPRAY BOTTLE NS SCH ×2 (08:05→20:49)
[2019-11-12] MEDS: Budesonide/Formoterol 160/4.5 1 PUFF INH IH SCH ×2 (10:27→19:42)
[2019-11-12] MEDS: Nicotine 14 MG PATCH.TD24 TD SCH (10:40)
[2019-11-12] MEDS ORDERED: traZODone 50 MG TABLET PO PRN (11:19)
[2019-11-12] MEDS: *HR* Rivaroxaban 10 MG TABLET PO SCH (16:57)
[2019-11-12] MEDS: ALPRAZolam 0.5 MG TABLET PO PRN (20:48)
[2019-11-13] MEDS: Ipratropium/Albuterol Neb 3 ML IH SCH ×4 (03:12→15:13)
[2019-11-13 03:51] LABS: Basophils % 0.1 %; Hematocrit 35.2 % (35.3-44.9); Hemoglobin 11.2 g/dL (11.5-15.4); Immature Granulocytes % 0.3 % (0-4); Lymphocytes # 0.5 K/mcL (0.6-4.6); Lymphocytes % 6.7 %; Mean Corpuscular HGB Conc 31.8 g/dL (31.6-35.5); Mean Corpuscular Hemoglobin 29.5 pg (28.0-33.3); Mean Corpuscular Volume 92.6 fL (83.0-100.0); Mean Platelet Volume 9.7 fL (9.4-12.4); Monocytes # 0.2 K/mcL (0.0-1.3); Monocytes % 2.7 %; Platelet Count 140 K/mcL (140-400); Red Cell Distribution Width 12.1 % (11.5-14.5); Segmented Neutrophils % 90.2 %
[2019-11-13 03:54] LABS: White Blood Count 6.7 K/mcL (4.3-11.1)
[2019-11-13 04:09] LABS: BUN/Creatinine Ratio 41 (6-26); Blood Urea Nitrogen 21 mg/dL (8-23); Calcium 9.3 mg/dL (8.6-10.3); Carbon Dioxide 44 mEq/L (23-29); Chloride 92 mEq/L (98-107); Glucose 147 mg/dL (70-105); Magnesium 1.5 mg/dL (1.6-2.6); Osmolality,Calculated 294 (280-300); Potassium 3.8 mEq/L (3.5-5.1); Sodium 139 mEq/L (136-145); eGFR For African Americans > 60 (> 60); eGFR For Non-African Americans > 60 (> 60)
[2019-11-13] MEDS: Budesonide/Formoterol 160/4.5 1 PUFF INH IH SCH ×2 (07:21→22:06)
[2019-11-13 08:29] LABS: VBG HCO3 42 mEq/L (21-27); VBG PCO2 78 mmHg (41-51); VBG PH 7.34 pH Units (7.32-7.42); VBG PO2 66 mmHg (25-50)
[2019-11-13] MEDS: Insulin LISPRO 300 UNITS/3 ML VIAL SQ SCH ×4 (09:09→21:30)
[2019-11-13] MEDS: methylPREDNISolone 125 MG/2 ML VIAL IVP SCH (09:57)
[2019-11-13] MEDS: Nicotine 14 MG PATCH.TD24 TD SCH (09:59)
[2019-11-13] MEDS: Metoprolol XL (24 HR) Succ 50 MG TAB.ER.24H PO SCH (10:54)
[2019-11-13] MEDS: Aspirin 81 MG TAB.CHEW PO SCH (10:55)
[2019-11-13] MEDS: Methylphenidate HCl 10 MG TABLET PO SCH ×3 (10:55→17:03)
[2019-11-13] MEDS: Folic Acid 1 MG TABLET PO SCH (10:55)
[2019-11-13] MEDS: Azithromycin 250 MG TABLET PO SCH (10:55)
[2019-11-13] MEDS: *HR* HYDROcodone/Acet 7.5/325 mg TABLET PO PRN ×2 (11:15→21:44)
[2019-11-13] MEDS: Fluticasone Propionate Nasal 50 MCG/SPRAY BOTTLE NS SCH ×2 (11:15→21:47)
[2019-11-13] MEDS: Levalbuterol Neb 0.63 MG/3 ML IH SCH ×2 (15:53→22:06)
[2019-11-13] MEDS: *HR* Rivaroxaban 10 MG TABLET PO SCH (17:03)
[2019-11-13] MEDS: ALPRAZolam 0.5 MG TABLET PO PRN (21:44)
[2019-11-14] MEDS: Levalbuterol Neb 0.63 MG/3 ML IH SCH ×2 (03:58→09:52)
[2019-11-14 04:19] LABS: VBG HCO3 39 mEq/L (21-27); VBG PCO2 70 mmHg (41-51); VBG PH 7.36 pH Units (7.32-7.42); VBG PO2 144 mmHg (25-50)
[2019-11-14 04:35] LABS: BUN/Creatinine Ratio 47 (6-26); Blood Urea Nitrogen 28 mg/dL (8-23); Calcium 8.9 mg/dL (8.6-10.3); Carbon Dioxide 41 mEq/L (23-29); Chloride 95 mEq/L (98-107); Glucose 96 mg/dL (70-105); Magnesium 1.6 mg/dL (1.6-2.6); Osmolality,Calculated 287 (280-300); Potassium 3.6 mEq/L (3.5-5.1); Sodium 136 mEq/L (136-145); eGFR For African Americans > 60 (> 60); eGFR For Non-African Americans > 60 (> 60)
[2019-11-14] MEDS: Insulin LISPRO 300 UNITS/3 ML VIAL SQ SCH ×2 (08:31→12:14)
[2019-11-14] MEDS ORDERED: MethylPREDNISolone 40 MG/ML VIAL IVP SCH (09:00)
[2019-11-14] MEDS: Folic Acid 1 MG TABLET PO SCH (09:26)
[2019-11-14] MEDS: Aspirin 81 MG TAB.CHEW PO SCH (09:26)
[2019-11-14] MEDS: Nicotine 14 MG PATCH.TD24 TD SCH (09:26)
[2019-11-14] MEDS: Metoprolol XL (24 HR) Succ 50 MG TAB.ER.24H PO SCH (09:26)
[2019-11-14] MEDS: Methylphenidate HCl 10 MG TABLET PO SCH (09:26)
[2019-11-14] MEDS: Azithromycin 250 MG TABLET PO SCH (09:27)
[2019-11-14] MEDS: Fluticasone Propionate Nasal 50 MCG/SPRAY BOTTLE NS SCH (09:28)
[2019-11-14] MEDS: *HR* HYDROcodone/Acet 7.5/325 mg TABLET PO PRN (09:37)
[2019-11-14] MEDS: Budesonide/Formoterol 160/4.5 1 PUFF INH IH SCH (09:52)
[2019-11-14 11:37] VITALS: BP 121/58
== END 2019-11-14 13:15 | disposition home health service (06) | DRG 140 ==
LOC: CDU → SUATTDRO 06:44 → 2NNU 08:06 → SUATTDRO 10:46 → 2ANU 11-12 19:21
PROVIDERS: ADMIT Internal Medicine; ATTEND Internal Medicine

== ENCOUNTER 2019-12-05 12:29 | Inpatient (IN) ==
[2019-12-05] MEDS ORDERED: *HR* Metoprolol 5 MG/5 ML VIAL IVP ONE (17:01)
[2019-12-05 17:13] LABS: ABG Base Excess 14 mEq/L (-2 to 3); ABG HCO3 45 mEq/L (21-27); ABG Oxygen Saturation 99 % (95-98); ABG PCO2 92 mmHg (35-45); ABG PO2 155 mmHg (85-104); ABG TCO2 48 mEq/L (20-26); Blood Gas Modality AF; Blood Gas VT 380 cc
[2019-12-05] MEDS: cefTRIAXone 2,000 MG in Water for inj. (sterile) 20 ML IVP SCH (17:53)
[2019-12-05] MEDS: methylPREDNISolone 125 MG/2 ML VIAL IVP SCH (17:53)
[2019-12-05] MEDS: Azithromycin 500 MG in 0.9 % Sodium Chloride 250 ML IVPB SCH (17:55)
[2019-12-05] MEDS: FentaNYL (PF) 1,000 MCG/100 ML IV.SOLN IVC SCH (18:12)
[2019-12-05 20:15] LABS: ABG Base Excess 10 mEq/L (-2 to 3); ABG HCO3 38 mEq/L (21-27); ABG Oxygen Saturation 94 % (95-98); ABG PCO2 64 mmHg (35-45); ABG PH 7.38 pH Units (7.32-7.45); ABG PO2 74 mmHg (85-104); ABG TCO2 40 mEq/L (20-26); Blood Gas Modality AF; Blood Gas VT 400 cc
[2019-12-05] MEDS ORDERED: Albuterol 2.5 MG/3 ML NEBULIZER IH PRN (20:19)
[2019-12-05] MEDS: Dexmedetomidine HCl 400 MCG/100 ML MLS IVC SCH (21:15)
[2019-12-05] MEDS: DilTIAZem 50 MG/50 ML IV.SOLN IVC SCH (21:53)
[2019-12-05] MEDS ORDERED: Ipratropium/Albuterol Neb 3 ML IH SCH (22:00)
[2019-12-05] MEDS ORDERED: Albuterol 2.5 MG/3 ML NEBULIZER IH SCH (22:00)
[2019-12-05] MEDS: Ipratropium/Albuterol Neb 3 ML IH SCH (23:34)
[2019-12-06] MEDS ORDERED: *HR* Metoprolol 5 MG/5 ML VIAL IVP ONE ×4 (01:12→07:44)
[2019-12-06] MEDS ORDERED: *HR* Heparin 5,000 UNIT/ML VIAL IVP PRN (01:13)
[2019-12-06] MEDS ORDERED: *HR* Heparin 5,000 UNIT/ML VIAL IVP ONE (01:13)
[2019-12-06] MEDS: DilTIAZem 50 MG/50 ML IV.SOLN IVC SCH ×3 (01:32→10:30)
[2019-12-06] MEDS ORDERED: Artificial Tears SOLN 15 ML BOTTLE BOTH EYES PRN (01:52)
[2019-12-06] MEDS: Ipratropium/Albuterol Neb 3 ML IH SCH ×6 (03:35→23:28)
[2019-12-06] MEDS: Artificial Tears SOLN 15 ML BOTTLE BOTH EYES SCH ×6 (03:35→23:39)
[2019-12-06 03:58] LABS: Hematocrit 39.6 % (35.3-44.9); Mean Corpuscular HGB Conc 30.3 g/dL (31.6-35.5); Mean Corpuscular Hemoglobin 29.1 pg (28.0-33.3); Mean Corpuscular Volume 96.1 fL (83.0-100.0); Mean Platelet Volume 9.9 fL (9.4-12.4); Platelet Count 302 K/mcL (140-400); Red Blood Count 4.12 M/mcL (3.82-4.97); Red Cell Distribution Width 12.7 % (11.5-14.5); White Blood Count 7.2 K/mcL (4.3-11.1)
[2019-12-06 03:59] LABS: Basophils % 0.4 %; Hematocrit 38.9 % (35.3-44.9); Hemoglobin 11.7 g/dL (11.5-15.4); Immature Granulocytes % 0.7 % (0-4); Lymphocytes # 0.3 K/mcL (0.6-4.6); Lymphocytes % 4.2 %; Mean Corpuscular HGB Conc 30.1 g/dL (31.6-35.5); Mean Corpuscular Hemoglobin 28.6 pg (28.0-33.3); Mean Corpuscular Volume 95.1 fL (83.0-100.0); Mean Platelet Volume 9.9 fL (9.4-12.4); Monocytes # 0.6 K/mcL (0.0-1.3); Neutrophils # 6.5 K/mcL (1.6-8.9); Platelet Count 298 K/mcL (140-400); Red Blood Count 4.09 M/mcL (3.82-4.97); Red Cell Distribution Width 12.6 % (11.5-14.5); Segmented Neutrophils % 86.7 %; White Blood Count 7.5 K/mcL (4.3-11.1)
[2019-12-06 04:01] LABS: Heparin anti-factor XA UFH 0.62 IU/mL (0.30-0.70); INR 1.5; Prothrombin Time 16.6 Seconds (9.4-12.1)
[2019-12-06 04:04] LABS: Activated Partial Thrombo Time 33.5 Seconds (26.0-36.0)
[2019-12-06 04:16] LABS: BUN/Creatinine Ratio 41 (6-26); Blood Urea Nitrogen 41 mg/dL (8-23); Calcium 9.7 mg/dL (8.6-10.3); Carbon Dioxide 34 mEq/L (23-29); Chloride 95 mEq/L (98-107); Glucose 187 mg/dL (70-105); Osmolality,Calculated 303 (280-300); Platelet Estimate Normal (Normal); Potassium 4.2 mEq/L (3.5-5.1); Sodium 139 mEq/L (136-145); eGFR For African Americans > 60 (> 60); eGFR For Non-African Americans 55 (> 60)
[2019-12-06 04:23] LABS: ABG Base Excess 12 mEq/L (-2 to 3); ABG HCO3 41 mEq/L (21-27); ABG Oxygen Saturation 96 % (95-98); ABG PCO2 76 mmHg (35-45); ABG PH 7.34 pH Units (7.32-7.45); ABG PO2 90 mmHg (85-104); ABG TCO2 43 mEq/L (20-26); Blood Gas Modality AF; Blood Gas VT 400 cc
[2019-12-06] MEDS: Heparin 25,000UNIT/250ML 1/2NS 25,000 UNIT/250 ML IV.SOLN IVC SCH (05:57)
[2019-12-06] MEDS: methylPREDNISolone 125 MG/2 ML VIAL IVP SCH ×2 (05:59→18:14)
[2019-12-06] MEDS: Pantoprazole 40 MG VIAL IVP SCH (07:25)
[2019-12-06] MEDS: Chlorhexidine Rinse 15 ML MOUTHWASH MM SCH ×2 (07:25→20:08)
[2019-12-06] MEDS: Dexmedetomidine HCl 400 MCG/100 ML MLS IVC SCH ×3 (07:26→20:08)
[2019-12-06] MEDS: FentaNYL (PF) 1,000 MCG/100 ML IV.SOLN IVC SCH ×2 (09:00→20:08)
[2019-12-06] MEDS ORDERED: Metoprolol XL (24 HR) Succ 25 MG TAB.ER.24H PO SCH (09:00)
[2019-12-06 09:09] LABS: Magnesium 1.6 mg/dL (1.6-2.6)
[2019-12-06] MEDS ORDERED: Potassium Phosphate 44 MEQ in 0.9 % Sodium Chloride 250 ML IVPB PRN (10:31)
[2019-12-06] MEDS ORDERED: D5% in Water 1,000 ML IVC PRN (12:43)
[2019-12-06] MEDS ORDERED: Dextrose Gel 15 GM/37.5 ML TUBE PO PRN ×2 (12:43)
[2019-12-06] MEDS ORDERED: *HR* Dextrose 50 % in Water (Vial) 50 ML VIAL IVP PRN (12:43)
[2019-12-06] MEDS: Insulin LISPRO 300 UNITS/3 ML VIAL SQ SCH ×4 (18:13→23:40)
[2019-12-06] MEDS: Azithromycin 500 MG in 0.9 % Sodium Chloride 250 ML IVPB SCH (18:15)
[2019-12-06] MEDS: cefTRIAXone 2,000 MG in Water for inj. (sterile) 20 ML IVP SCH (18:16)
[2019-12-06] MEDS: Insulin DETEMIR 100 UNIT/ML X5UNITS SQ SCH (20:09)
[2019-12-07] MEDS: FentaNYL (PF) 1,000 MCG/100 ML IV.SOLN IVC SCH ×3 (01:30→15:36)
[2019-12-07] MEDS: Dexmedetomidine HCl 400 MCG/100 ML MLS IVC SCH ×3 (02:40→14:42)
[2019-12-07] MEDS: Ipratropium/Albuterol Neb 3 ML IH SCH ×6 (03:01→23:24)
[2019-12-07] MEDS: Artificial Tears SOLN 15 ML BOTTLE BOTH EYES SCH ×5 (03:10→19:42)
[2019-12-07] MEDS: Insulin LISPRO 300 UNITS/3 ML VIAL SQ SCH ×5 (04:09→19:42)
[2019-12-07 04:32] LABS: VBG Ionized Calcium 1.19 mmol/L (1.15-1.35)
[2019-12-07 04:34] LABS: ABG Base Excess 13 mEq/L (-2 to 3); ABG HCO3 43 mEq/L (21-27); ABG Oxygen Saturation 88 % (95-98); ABG PCO2 82 mmHg (35-45); ABG PH 7.33 pH Units (7.32-7.45); ABG PO2 63 mmHg (85-104); ABG TCO2 45 mEq/L (20-26); Blood Gas Modality ASSIST CONTROL; Blood Gas VT 400 cc
[2019-12-07 04:35] LABS: Hematocrit 34.4 % (35.3-44.9); Hemoglobin 10.4 g/dL (11.5-15.4); Mean Corpuscular HGB Conc 30.2 g/dL (31.6-35.5); Mean Corpuscular Hemoglobin 28.7 pg (28.0-33.3); Mean Platelet Volume 10.1 fL (9.4-12.4); Nucleated Red Blood Cells 0.2 /100 WBC (0); Platelet Count 275 K/mcL (140-400); Red Blood Count 3.62 M/mcL (3.82-4.97); White Blood Count 8.7 K/mcL (4.3-11.1)
[2019-12-07 04:51] LABS: BUN/Creatinine Ratio 60 (6-26); Blood Urea Nitrogen 53 mg/dL (8-23); Calcium 9.6 mg/dL (8.6-10.3); Carbon Dioxide 32 mEq/L (23-29); Chloride 97 mEq/L (98-107); Glucose 150 mg/dL (70-105); Magnesium 2.3 mg/dL (1.6-2.6); Osmolality,Calculated 303 (280-300); Phosphorous 3.2 mg/dL (2.7-4.5); Potassium 4.2 mEq/L (3.5-5.1); Sodium 138 mEq/L (136-145); eGFR For African Americans > 60 (> 60); eGFR For Non-African Americans > 60 (> 60)
[2019-12-07] MEDS: methylPREDNISolone 125 MG/2 ML VIAL IVP SCH ×2 (05:04→17:24)
[2019-12-07] MEDS: *HR* Heparin 5,000 UNIT/ML VIAL IVP PRN (05:04)
[2019-12-07 05:20] LABS: Lymphocytes # 0.4 K/mcL (0.6-4.6); Neutrophils # 7.8 K/mcL (1.6-8.9)
[2019-12-07 05:21] LABS: Platelet Estimate Normal (Normal)
[2019-12-07] MEDS: Chlorhexidine Rinse 15 ML MOUTHWASH MM SCH ×2 (08:51→19:42)
[2019-12-07] MEDS: Pantoprazole 40 MG VIAL IVP SCH (08:51)
[2019-12-07] MEDS: Heparin 25,000UNIT/250ML 1/2NS 25,000 UNIT/250 ML IV.SOLN IVC SCH (10:32)
[2019-12-07] MEDS: Azithromycin 500 MG in 0.9 % Sodium Chloride 250 ML IVPB SCH (17:23)
[2019-12-07] MEDS: Cefepime HCl 1,000 MG in 0.9 % Sodium Chloride Mini Bag 100 ML IVPB SCH (17:23)
[2019-12-07] MEDS: *HR* LORazepam 2 MG/ML VIAL IVP PRN (17:24)
[2019-12-07] MEDS: Insulin DETEMIR 100 UNIT/ML X5UNITS SQ SCH (19:42)
[2019-12-08] MEDS: *HR* LORazepam 2 MG/ML VIAL IVP PRN (00:02)
[2019-12-08] MEDS: Insulin LISPRO 300 UNITS/3 ML VIAL SQ SCH ×7 (00:04→23:57)
[2019-12-08] MEDS: Artificial Tears SOLN 15 ML BOTTLE BOTH EYES SCH ×7 (00:04→23:56)
[2019-12-08] MEDS: *HR* Metoprolol 5 MG/5 ML VIAL IVP PRN ×2 (00:10→11:38)
[2019-12-08] MEDS: Dexmedetomidine HCl 400 MCG/100 ML MLS IVC SCH ×4 (00:20→19:25)
[2019-12-08] MEDS: Ipratropium/Albuterol Neb 3 ML IH SCH ×6 (03:04→23:55)
[2019-12-08] MEDS: FentaNYL (PF) 1,000 MCG/100 ML IV.SOLN IVC SCH ×3 (03:30→20:14)
[2019-12-08 04:20] LABS: ABG Base Excess 13 mEq/L (-2 to 3); ABG HCO3 42 mEq/L (21-27); ABG Oxygen Saturation 87 % (95-98); ABG PCO2 78 mmHg (35-45); ABG PH 7.34 pH Units (7.32-7.45); ABG PO2 60 mmHg (85-104); ABG TCO2 44 mEq/L (20-26); Blood Gas Modality ASSIST CONTROL; Blood Gas VT 400 cc
[2019-12-08] MEDS: methylPREDNISolone 125 MG/2 ML VIAL IVP SCH ×2 (05:10→17:49)
[2019-12-08] MEDS: Cefepime HCl 1,000 MG in 0.9 % Sodium Chloride Mini Bag 100 ML IVPB SCH ×2 (05:10→17:49)
[2019-12-08 05:21] LABS: Basophils % 0.2 %; Hematocrit 35.3 % (35.3-44.9); Hemoglobin 10.4 g/dL (11.5-15.4); Immature Granulocytes % 1.1 % (0-4); Lymphocytes # 0.3 K/mcL (0.6-4.6); Lymphocytes % 5.3 %; Mean Corpuscular HGB Conc 29.5 g/dL (31.6-35.5); Mean Corpuscular Hemoglobin 29.1 pg (28.0-33.3); Mean Corpuscular Volume 98.9 fL (83.0-100.0); Mean Platelet Volume 10.2 fL (9.4-12.4); Monocytes # 0.4 K/mcL (0.0-1.3); Monocytes % 5.6 %; Neutrophils # 5.7 K/mcL (1.6-8.9); Platelet Count 243 K/mcL (140-400); Red Blood Count 3.57 M/mcL (3.82-4.97); Segmented Neutrophils % 87.8 %; White Blood Count 6.5 K/mcL (4.3-11.1)
[2019-12-08 05:36] LABS: Magnesium 2.1 mg/dL (1.6-2.6); Phosphorous 2.6 mg/dL (2.7-4.5)
[2019-12-08 05:37] LABS: BUN/Creatinine Ratio 74 (6-26); Blood Urea Nitrogen 50 mg/dL (8-23); Calcium 9.8 mg/dL (8.6-10.3); Carbon Dioxide 39 mEq/L (23-29); Chloride 97 mEq/L (98-107); Glucose 278 mg/dL (70-105); Osmolality,Calculated 311 (280-300); Potassium 4.5 mEq/L (3.5-5.1); Sodium 139 mEq/L (136-145); eGFR For African Americans > 60 (> 60); eGFR For Non-African Americans > 60 (> 60)
[2019-12-08] MEDS: Chlorhexidine Rinse 15 ML MOUTHWASH MM SCH ×2 (08:29→20:05)
[2019-12-08] MEDS: Pantoprazole 40 MG VIAL IVP SCH (08:29)
[2019-12-08] MEDS: *HR* LORazepam 2 MG/ML VIAL IVP SCH ×4 (11:30→23:57)
[2019-12-08] MEDS: Heparin 25,000UNIT/250ML 1/2NS 25,000 UNIT/250 ML IV.SOLN IVC SCH (14:00)
[2019-12-08] MEDS: Azithromycin 500 MG in 0.9 % Sodium Chloride 250 ML IVPB SCH (16:39)
[2019-12-08] MEDS: Insulin DETEMIR 100 UNIT/ML X5UNITS SQ SCH (20:05)
[2019-12-09] MEDS: *HR* Metoprolol 5 MG/5 ML VIAL IVP PRN ×2 (00:34→06:56)
[2019-12-09] MEDS: Dexmedetomidine HCl 400 MCG/100 ML MLS IVC SCH ×4 (02:19→20:22)
[2019-12-09] MEDS: Ipratropium/Albuterol Neb 3 ML IH SCH ×6 (03:17→23:25)
[2019-12-09] MEDS: Artificial Tears SOLN 15 ML BOTTLE BOTH EYES SCH ×6 (04:04→23:46)
[2019-12-09] MEDS: *HR* LORazepam 2 MG/ML VIAL IVP SCH ×6 (04:05→23:46)
[2019-12-09] MEDS: Insulin LISPRO 300 UNITS/3 ML VIAL SQ SCH ×6 (04:06→23:46)
[2019-12-09 04:10] LABS: ABG Base Excess 13 mEq/L (-2 to 3); ABG HCO3 43 mEq/L (21-27); ABG Oxygen Saturation 100 % (95-98); ABG PCO2 80 mmHg (35-45); ABG PH 7.33 pH Units (7.32-7.45); ABG PO2 230 mmHg (85-104); ABG TCO2 45 mEq/L (20-26); Blood Gas Modality ASSIST CONTROL; Blood Gas VT 400 cc
[2019-12-09 05:09] LABS: Hematocrit 37.6 % (35.3-44.9); Hemoglobin 11.2 g/dL (11.5-15.4); Mean Corpuscular HGB Conc 29.8 g/dL (31.6-35.5); Mean Corpuscular Hemoglobin 29.5 pg (28.0-33.3); Mean Corpuscular Volume 98.9 fL (83.0-100.0); White Blood Count 7.7 K/mcL (4.3-11.1)
[2019-12-09 05:10] LABS: Basophils % 0.3 %; Immature Granulocytes % 1.4 % (0-4); Lymphocytes # 0.4 K/mcL (0.6-4.6); Lymphocytes % 5.7 %; Mean Platelet Volume 10.4 fL (9.4-12.4); Monocytes # 0.3 K/mcL (0.0-1.3); Monocytes % 4.2 %; Neutrophils # 6.8 K/mcL (1.6-8.9); Platelet Count 210 K/mcL (140-400); Segmented Neutrophils % 88.4 %
[2019-12-09 05:15] LABS: BUN/Creatinine Ratio 84 (6-26); Blood Urea Nitrogen 43 mg/dL (8-23); Calcium 9.8 mg/dL (8.6-10.3); Carbon Dioxide 40 mEq/L (23-29); Chloride 97 mEq/L (98-107); Glucose 306 mg/dL (70-105); Magnesium 1.9 mg/dL (1.6-2.6); Osmolality,Calculated 312 (280-300); Phosphorous 2.8 mg/dL (2.7-4.5); Potassium 4.8 mEq/L (3.5-5.1); Sodium 140 mEq/L (136-145); eGFR For African Americans > 60 (> 60); eGFR For Non-African Americans > 60 (> 60)
[2019-12-09] MEDS: FentaNYL (PF) 1,000 MCG/100 ML IV.SOLN IVC SCH ×2 (05:22→15:18)
[2019-12-09] MEDS: Cefepime HCl 1,000 MG in 0.9 % Sodium Chloride Mini Bag 100 ML IVPB SCH ×2 (05:23→16:56)
[2019-12-09] MEDS: methylPREDNISolone 125 MG/2 ML VIAL IVP SCH (05:24)
[2019-12-09] MEDS: Heparin 25,000UNIT/250ML 1/2NS 25,000 UNIT/250 ML IV.SOLN IVC SCH ×2 (08:31→15:00)
[2019-12-09] MEDS: Pantoprazole 40 MG VIAL IVP SCH (08:44)
[2019-12-09] MEDS: Chlorhexidine Rinse 15 ML MOUTHWASH MM SCH ×2 (08:44→20:20)
[2019-12-09] MEDS: MethylPREDNISolone 40 MG/ML VIAL IVP SCH (16:52)
[2019-12-09] MEDS: DOXYCYCLINE ORAL SUSPENSION 100 MG/10 ML UDC PO SCH (17:18)
[2019-12-09] MEDS ORDERED: Doxycycline 100 MG in 0.9 % Sodium Chloride Mini Bag 100 ML IVPB SCH (18:00)
[2019-12-09] MEDS: Insulin DETEMIR 100 UNIT/ML X5UNITS SQ SCH (20:20)
[2019-12-09] MEDS: DilTIAZem 50 MG/50 ML IV.SOLN IVC SCH (20:22)
[2019-12-10] MEDS: FentaNYL (PF) 1,000 MCG/100 ML IV.SOLN IVC SCH ×3 (00:48→19:38)
[2019-12-10] MEDS: Dexmedetomidine HCl 400 MCG/100 ML MLS IVC SCH ×4 (03:11→23:58)
[2019-12-10] MEDS: Ipratropium/Albuterol Neb 3 ML IH SCH ×6 (03:35→23:23)
[2019-12-10] MEDS: *HR* LORazepam 2 MG/ML VIAL IVP SCH ×6 (04:11→23:16)
[2019-12-10] MEDS: Artificial Tears SOLN 15 ML BOTTLE BOTH EYES SCH ×6 (04:12→23:16)
[2019-12-10] MEDS: Insulin LISPRO 300 UNITS/3 ML VIAL SQ SCH ×6 (04:12→23:21)
[2019-12-10 04:26] LABS: ABG Base Excess 15 mEq/L (-2 to 3); ABG HCO3 44 mEq/L (21-27); ABG Oxygen Saturation 92 % (95-98); ABG PCO2 73 mmHg (35-45); ABG PH 7.39 pH Units (7.32-7.45); ABG PO2 69 mmHg (85-104); ABG TCO2 46 mEq/L (20-26); Blood Gas Modality ASSIST CONTROL; Blood Gas VT 400 cc
[2019-12-10] MEDS: Cefepime HCl 1,000 MG in 0.9 % Sodium Chloride Mini Bag 100 ML IVPB SCH (05:49)
[2019-12-10] MEDS: MethylPREDNISolone 40 MG/ML VIAL IVP SCH ×2 (05:50→17:07)
[2019-12-10 05:52] LABS: Basophils % 0.3 %; Hematocrit 32.6 % (35.3-44.9); Hemoglobin 9.9 g/dL (11.5-15.4); Immature Granulocytes % 2.4 % (0-4); Lymphocytes # 0.6 K/mcL (0.6-4.6); Mean Corpuscular HGB Conc 30.4 g/dL (31.6-35.5); Mean Corpuscular Hemoglobin 29.7 pg (28.0-33.3); Mean Corpuscular Volume 97.9 fL (83.0-100.0); Mean Platelet Volume 10.1 fL (9.4-12.4); Monocytes # 0.5 K/mcL (0.0-1.3); Monocytes % 4.5 %; Platelet Count 216 K/mcL (140-400); Red Blood Count 3.33 M/mcL (3.82-4.97); Red Cell Distribution Width 12.9 % (11.5-14.5); Segmented Neutrophils % 86.8 %; White Blood Count 10.4 K/mcL (4.3-11.1)
[2019-12-10 06:07] LABS: BUN/Creatinine Ratio 79 (6-26); Blood Urea Nitrogen 31 mg/dL (8-23); Calcium 8.7 mg/dL (8.6-10.3); Carbon Dioxide 38 mEq/L (23-29); Chloride 100 mEq/L (98-107); Glucose 246 mg/dL (70-105); Osmolality,Calculated 303 (280-300); Potassium 4.4 mEq/L (3.5-5.1); Sodium 139 mEq/L (136-145); eGFR For African Americans > 60 (> 60); eGFR For Non-African Americans > 60 (> 60)
[2019-12-10] MEDS: DOXYCYCLINE ORAL SUSPENSION 100 MG/10 ML UDC PO SCH (06:15)
[2019-12-10] MEDS: Chlorhexidine Rinse 15 ML MOUTHWASH MM SCH ×2 (08:09→19:57)
[2019-12-10] MEDS: Pantoprazole 40 MG VIAL IVP SCH (08:09)
[2019-12-10] MEDS ORDERED: Sennosides/Docusate Sodium TABLET PO SCH (10:45)
[2019-12-10] MEDS ORDERED: cefTRIAXone 2,000 MG in Water for inj. (sterile) 20 ML IVPB SCH (11:00)
[2019-12-10] MEDS: cefTRIAXone 2,000 MG in Water for inj. (sterile) 20 ML IVP SCH (12:18)
[2019-12-10] MEDS: *HR* Heparin 5,000 UNIT/ML VIAL IVP PRN (15:17)
[2019-12-10] MEDS: Heparin 25,000UNIT/250ML 1/2NS 25,000 UNIT/250 ML IV.SOLN IVC SCH (19:11)
[2019-12-10] MEDS: DilTIAZem 50 MG/50 ML IV.SOLN IVC SCH (19:27)
[2019-12-10] MEDS: Insulin DETEMIR 100 UNIT/ML X5UNITS SQ SCH (19:57)
[2019-12-11] MEDS: Insulin LISPRO 300 UNITS/3 ML VIAL SQ SCH ×6 (03:28→23:45)
[2019-12-11] MEDS: *HR* LORazepam 2 MG/ML VIAL IVP SCH ×6 (03:28→23:42)
[2019-12-11] MEDS: Ipratropium/Albuterol Neb 3 ML IH SCH ×6 (03:29→23:27)
[2019-12-11] MEDS: FentaNYL (PF) 1,000 MCG/100 ML IV.SOLN IVC SCH ×3 (03:38→22:55)
[2019-12-11 04:05] LABS: ABG Base Excess 15 mEq/L (-2 to 3); ABG HCO3 43 mEq/L (21-27); ABG Oxygen Saturation 95 % (95-98); ABG PCO2 66 mmHg (35-45); ABG PH 7.42 pH Units (7.32-7.45); ABG PO2 76 mmHg (85-104); ABG TCO2 45 mEq/L (20-26); Blood Gas Modality ASSIST CONTROL; Blood Gas VT 400 cc
[2019-12-11 04:58] LABS: Hematocrit 39.5 % (35.3-44.9); Red Cell Distribution Width 12.9 % (11.5-14.5)
[2019-12-11 05:00] LABS: Basophils # 0.1 K/mcL (0.0-0.2); Basophils % 0.5 %; Hemoglobin 11.6 g/dL (11.5-15.4); Immature Granulocytes % 3.9 % (0-4); Lymphocytes % 9.9 %; Mean Corpuscular HGB Conc 29.4 g/dL (31.6-35.5); Mean Corpuscular Hemoglobin 29.3 pg (28.0-33.3); Mean Corpuscular Volume 99.7 fL (83.0-100.0); Mean Platelet Volume 9.9 fL (9.4-12.4); Monocytes # 0.3 K/mcL (0.0-1.3); Monocytes % 2.9 %; Neutrophils # 8.3 K/mcL (1.6-8.9); Platelet Count 228 K/mcL (140-400); Red Blood Count 3.96 M/mcL (3.82-4.97); Segmented Neutrophils % 82.8 %
[2019-12-11] MEDS: Artificial Tears SOLN 15 ML BOTTLE BOTH EYES SCH ×6 (05:09→23:45)
[2019-12-11] MEDS: MethylPREDNISolone 40 MG/ML VIAL IVP SCH ×2 (05:10→17:50)
[2019-12-11 05:17] LABS: BUN/Creatinine Ratio 69 (6-26); Blood Urea Nitrogen 29 mg/dL (8-23); Calcium 9.6 mg/dL (8.6-10.3); Carbon Dioxide 36 mEq/L (23-29); Chloride 97 mEq/L (98-107); Glucose 174 mg/dL (70-105); Osmolality,Calculated 296 (280-300); Potassium 5.2 mEq/L (3.5-5.1); Sodium 138 mEq/L (136-145); eGFR For African Americans > 60 (> 60); eGFR For Non-African Americans > 60 (> 60)
[2019-12-11] MEDS: *HR* Metoprolol 5 MG/5 ML VIAL IVP PRN (06:51)
[2019-12-11] MEDS: Chlorhexidine Rinse 15 ML MOUTHWASH MM SCH ×2 (08:32→19:53)
[2019-12-11] MEDS: Pantoprazole 40 MG VIAL IVP SCH (08:32)
[2019-12-11] MEDS ORDERED: Amiodarone Premix 360 MG/200 ML BAG IVC ONE (08:42)
[2019-12-11] MEDS ORDERED: Amiodarone Premix 150 MG/100 ML BAG IVPB ONE (08:42)
[2019-12-11] MEDS: Dexmedetomidine HCl 400 MCG/100 ML MLS IVC SCH ×2 (08:54→17:49)
[2019-12-11] MEDS: cefTRIAXone 2,000 MG in Water for inj. (sterile) 20 ML IVP SCH (11:37)
[2019-12-11] MEDS: Amiodarone Premix 360 MG/200 ML BAG IVC SCH (16:00)
[2019-12-11] MEDS: DilTIAZem 50 MG/50 ML IV.SOLN IVC SCH (19:55)
[2019-12-11] MEDS: Insulin DETEMIR 100 UNIT/ML X5UNITS SQ SCH (22:08)
[2019-12-12] MEDS: *HR* Metoprolol 5 MG/5 ML VIAL IVP PRN (00:26)
[2019-12-12] MEDS ORDERED: *HR* Metoprolol 5 MG/5 ML VIAL IVP ONE (01:56)
[2019-12-12] MEDS: Heparin 25,000UNIT/250ML 1/2NS 25,000 UNIT/250 ML IV.SOLN IVC SCH (02:15)
[2019-12-12] MEDS: Ipratropium/Albuterol Neb 3 ML IH SCH ×3 (03:38→15:40)
[2019-12-12] MEDS: *HR* LORazepam 2 MG/ML VIAL IVP SCH ×5 (03:58→20:50)
[2019-12-12] MEDS: Artificial Tears SOLN 15 ML BOTTLE BOTH EYES SCH ×5 (03:59→20:51)
[2019-12-12] MEDS: Insulin LISPRO 300 UNITS/3 ML VIAL SQ SCH ×5 (04:02→20:51)
[2019-12-12 04:25] LABS: ABG Base Excess 12 mEq/L (-2 to 3); ABG HCO3 39 mEq/L (21-27); ABG Oxygen Saturation 94 % (95-98); ABG PCO2 63 mmHg (35-45); ABG PO2 76 mmHg (85-104); ABG TCO2 41 mEq/L (20-26); Blood Gas Modality ASSIST CONTROL; Blood Gas VT 400 cc
[2019-12-12] MEDS: Amiodarone Premix 360 MG/200 ML BAG IVC SCH ×2 (04:57→17:00)
[2019-12-12] MEDS: Dexmedetomidine HCl 400 MCG/100 ML MLS IVC SCH ×2 (05:02→14:45)
[2019-12-12] MEDS: MethylPREDNISolone 40 MG/ML VIAL IVP SCH ×2 (05:19→16:24)
[2019-12-12] MEDS: FentaNYL (PF) 1,000 MCG/100 ML IV.SOLN IVC SCH ×3 (06:55→22:32)
[2019-12-12 08:30] LABS: BUN/Creatinine Ratio 49 (6-26); Blood Urea Nitrogen 23 mg/dL (8-23); Calcium 9.8 mg/dL (8.6-10.3); Carbon Dioxide 38 mEq/L (23-29); Chloride 92 mEq/L (98-107); Glucose 179 mg/dL (70-105); Magnesium 1.5 mg/dL (1.6-2.6); Osmolality,Calculated 286 (280-300); Phosphorous 3.8 mg/dL (2.7-4.5); Potassium 5.2 mEq/L (3.5-5.1); Sodium 134 mEq/L (136-145); eGFR For African Americans > 60 (> 60); eGFR For Non-African Americans > 60 (> 60)
[2019-12-12] MEDS: Pantoprazole 40 MG VIAL IVP SCH (08:49)
[2019-12-12] MEDS: Chlorhexidine Rinse 15 ML MOUTHWASH MM SCH ×2 (08:50→20:50)
[2019-12-12] MEDS ORDERED: Amiodarone Premix 150 MG/100 ML BAG IVPB ONE (09:35)
[2019-12-12] MEDS: Levalbuterol Neb 1.25 MG/3 ML IH SCH ×3 (10:58→21:24)
[2019-12-12 11:05] LABS: Hematocrit 37.4 % (35.3-44.9); Hemoglobin 11.3 g/dL (11.5-15.4); Mean Corpuscular HGB Conc 30.2 g/dL (31.6-35.5); Mean Corpuscular Hemoglobin 28.4 pg (28.0-33.3); Mean Platelet Volume 10.3 fL (9.4-12.4); Monocytes # 0.2 K/mcL (0.0-1.3); Platelet Count 274 K/mcL (140-400); Red Blood Count 3.98 M/mcL (3.82-4.97); Red Cell Distribution Width 12.7 % (11.5-14.5); White Blood Count 12.1 K/mcL (4.3-11.1)
[2019-12-12 11:12] LABS: Troponin I 0.11 ng/mL (< 0.04)
[2019-12-12] MEDS: cefTRIAXone 2,000 MG in Water for inj. (sterile) 20 ML IVP SCH (11:25)
[2019-12-12 12:05] LABS: Lymphocytes # 0.9 K/mcL (0.6-4.6); Neutrophils # 10.7 K/mcL (1.6-8.9)
[2019-12-12 12:06] LABS: Toxic Granulation Present (Not Present)
[2019-12-12] MEDS: Insulin DETEMIR 100 UNIT/ML X5UNITS SQ SCH (20:51)
[2019-12-13] MEDS: Artificial Tears SOLN 15 ML BOTTLE BOTH EYES SCH ×6 (00:01→19:47)
[2019-12-13] MEDS: *HR* LORazepam 2 MG/ML VIAL IVP SCH ×3 (00:01→07:49)
[2019-12-13] MEDS: Insulin LISPRO 300 UNITS/3 ML VIAL SQ SCH ×6 (00:04→19:55)
[2019-12-13 00:30] LABS: Troponin I < 0.03 ng/mL (< 0.04)
[2019-12-13 00:49] LABS: Magnesium 1.5 mg/dL (1.6-2.6)
[2019-12-13] MEDS: Levalbuterol Neb 1.25 MG/3 ML IH SCH ×4 (03:18→21:31)
[2019-12-13] MEDS: Heparin 25,000UNIT/250ML 1/2NS 25,000 UNIT/250 ML IV.SOLN IVC SCH (04:18)
[2019-12-13 04:54] LABS: ABG Base Excess 15 mEq/L (-2 to 3); ABG HCO3 41 mEq/L (21-27); ABG Oxygen Saturation 95 % (95-98); ABG PCO2 54 mmHg (35-45); ABG PH 7.48 pH Units (7.32-7.45); ABG PO2 72 mmHg (85-104); ABG TCO2 42 mEq/L (20-26); Blood Gas Modality ASSIST CONTROL; Blood Gas VT 400 cc
[2019-12-13 05:04] LABS: Basophils % 0.2 %; Hemoglobin 10.3 g/dL (11.5-15.4); Immature Granulocytes % 2.5 % (0-4); Lymphocytes # 1.3 K/mcL (0.6-4.6); Lymphocytes % 8.9 %; Mean Corpuscular HGB Conc 30.3 g/dL (31.6-35.5); Mean Corpuscular Volume 92.4 fL (83.0-100.0); Mean Platelet Volume 10.1 fL (9.4-12.4); Monocytes # 0.5 K/mcL (0.0-1.3); Monocytes % 3.2 %; Neutrophils # 12.1 K/mcL (1.6-8.9); Platelet Count 279 K/mcL (140-400); Red Blood Count 3.68 M/mcL (3.82-4.97); Red Cell Distribution Width 12.6 % (11.5-14.5); Segmented Neutrophils % 85.2 %; White Blood Count 14.3 K/mcL (4.3-11.1)
[2019-12-13] MEDS: Amiodarone Premix 360 MG/200 ML BAG IVC SCH ×2 (05:07→19:55)
[2019-12-13] MEDS: MethylPREDNISolone 40 MG/ML VIAL IVP SCH ×2 (05:09→17:58)
[2019-12-13 05:18] LABS: BUN/Creatinine Ratio 49 (6-26); Blood Urea Nitrogen 20 mg/dL (8-23); Carbon Dioxide 40 mEq/L (23-29); Chloride 93 mEq/L (98-107); Glucose 127 mg/dL (70-105); Magnesium 1.8 mg/dL (1.6-2.6); Osmolality,Calculated 284 (280-300); Phosphorous 3.3 mg/dL (2.7-4.5); Potassium 4.7 mEq/L (3.5-5.1); Sodium 135 mEq/L (136-145); eGFR For African Americans > 60 (> 60); eGFR For Non-African Americans > 60 (> 60)
[2019-12-13] MEDS: Pantoprazole 40 MG VIAL IVP SCH (07:42)
[2019-12-13] MEDS: Chlorhexidine Rinse 15 ML MOUTHWASH MM SCH ×2 (07:42→19:47)
[2019-12-13] MEDS: Dexmedetomidine HCl 400 MCG/100 ML MLS IVC SCH ×3 (07:51→20:40)
[2019-12-13] MEDS: FentaNYL (PF) 1,000 MCG/100 ML IV.SOLN IVC SCH ×2 (08:00→19:31)
[2019-12-13] MEDS: QUEtiapine Fumarate 25 MG TABLET PO SCH ×2 (09:05→19:47)
[2019-12-13] MEDS: cefTRIAXone 2,000 MG in Water for inj. (sterile) 20 ML IVP SCH (12:11)
[2019-12-13] MEDS ORDERED: *HR* LORazepam 2 MG/ML VIAL IVP SCH (18:00)
[2019-12-13] MEDS: Insulin DETEMIR 100 UNIT/ML X5UNITS SQ SCH (20:00)
[2019-12-14] MEDS: Artificial Tears SOLN 15 ML BOTTLE BOTH EYES SCH ×6 (00:18→21:57)
[2019-12-14] MEDS: Insulin LISPRO 300 UNITS/3 ML VIAL SQ SCH ×6 (00:18→21:58)
[2019-12-14 03:36] LABS: VBG Ionized Calcium 1.25 mmol/L (1.15-1.35)
[2019-12-14 03:40] LABS: Basophils % 0.1 %; Hematocrit 34.4 % (35.3-44.9); Hemoglobin 10.7 g/dL (11.5-15.4); Immature Granulocytes % 1.4 % (0-4); Lymphocytes # 0.9 K/mcL (0.6-4.6); Lymphocytes % 5.6 %; Mean Corpuscular HGB Conc 31.1 g/dL (31.6-35.5); Mean Corpuscular Hemoglobin 29.1 pg (28.0-33.3); Mean Corpuscular Volume 93.5 fL (83.0-100.0); Mean Platelet Volume 10.1 fL (9.4-12.4); Monocytes # 0.4 K/mcL (0.0-1.3); Monocytes % 2.8 %; Neutrophils # 13.7 K/mcL (1.6-8.9); Platelet Count 349 K/mcL (140-400); Red Blood Count 3.68 M/mcL (3.82-4.97); Red Cell Distribution Width 12.7 % (11.5-14.5); Segmented Neutrophils % 90.1 %; White Blood Count 15.2 K/mcL (4.3-11.1)
[2019-12-14 03:59] LABS: BUN/Creatinine Ratio 37 (6-26); Blood Urea Nitrogen 19 mg/dL (8-23); Calcium 9.7 mg/dL (8.6-10.3); Carbon Dioxide 40 mEq/L (23-29); Chloride 94 mEq/L (98-107); Glucose 123 mg/dL (70-105); Magnesium 1.9 mg/dL (1.6-2.6); Osmolality,Calculated 288 (280-300); Phosphorous 3.6 mg/dL (2.7-4.5); Sodium 137 mEq/L (136-145); eGFR For African Americans > 60 (> 60); eGFR For Non-African Americans > 60 (> 60)
[2019-12-14] MEDS: Levalbuterol Neb 1.25 MG/3 ML IH SCH ×4 (04:04→21:49)
[2019-12-14] MEDS: FentaNYL (PF) 1,000 MCG/100 ML IV.SOLN IVC SCH (04:21)
[2019-12-14 04:53] LABS: ABG Base Excess 14 mEq/L (-2 to 3); ABG HCO3 40 mEq/L (21-27); ABG Oxygen Saturation 95 % (95-98); ABG PCO2 56 mmHg (35-45); ABG PH 7.46 pH Units (7.32-7.45); ABG PO2 73 mmHg (85-104); ABG TCO2 41 mEq/L (20-26); Blood Gas Modality ASSIST CONTROL; Blood Gas VT 400 cc
[2019-12-14] MEDS: MethylPREDNISolone 40 MG/ML VIAL IVP SCH ×2 (05:34→18:11)
[2019-12-14] MEDS: Chlorhexidine Rinse 15 ML MOUTHWASH MM SCH ×2 (08:12→21:20)
[2019-12-14] MEDS: *HR* LORazepam 2 MG/ML VIAL IVP PRN (08:12)
[2019-12-14] MEDS: Pantoprazole 40 MG VIAL IVP SCH (08:13)
[2019-12-14] MEDS: Heparin 25,000UNIT/250ML 1/2NS 25,000 UNIT/250 ML IV.SOLN IVC SCH (08:14)
[2019-12-14] MEDS: Amiodarone Premix 360 MG/200 ML BAG IVC SCH ×2 (08:15→21:59)
[2019-12-14] MEDS ORDERED: *HR* Metoprolol 5 MG/5 ML VIAL IVP ONE ×2 (08:29→08:46)
[2019-12-14] MEDS: QUEtiapine Fumarate 25 MG TABLET PO SCH ×2 (18:10→21:21)
[2019-12-14] MEDS: cefTRIAXone 2,000 MG in Water for inj. (sterile) 20 ML IVP SCH (18:27)
[2019-12-14] MEDS ORDERED: *HR* HYDROcodone/Acet 7.5/325 mg TABLET PO PRN (20:39)
[2019-12-14] MEDS: Insulin DETEMIR 100 UNIT/ML X5UNITS SQ SCH (21:21)
[2019-12-15] MEDS: Insulin LISPRO 300 UNITS/3 ML VIAL SQ SCH ×3 (00:43→09:59)
[2019-12-15] MEDS: Artificial Tears SOLN 15 ML BOTTLE BOTH EYES SCH ×5 (00:46→18:41)
[2019-12-15] MEDS: *HR* LORazepam 2 MG/ML VIAL IVP PRN (01:38)
[2019-12-15] MEDS: Levalbuterol Neb 1.25 MG/3 ML IH SCH ×4 (03:49→22:15)
[2019-12-15 03:52] LABS: Basophils % 0.1 %; Hematocrit 29.5 % (35.3-44.9); Immature Granulocytes % 1.1 % (0-4); Lymphocytes # 0.4 K/mcL (0.6-4.6); Lymphocytes % 4.2 %; Mean Corpuscular HGB Conc 30.5 g/dL (31.6-35.5); Mean Corpuscular Hemoglobin 28.8 pg (28.0-33.3); Mean Corpuscular Volume 94.2 fL (83.0-100.0); Mean Platelet Volume 9.8 fL (9.4-12.4); Monocytes # 0.4 K/mcL (0.0-1.3); Neutrophils # 8.9 K/mcL (1.6-8.9); Platelet Count 330 K/mcL (140-400); Red Blood Count 3.13 M/mcL (3.82-4.97); Red Cell Distribution Width 12.7 % (11.5-14.5); Segmented Neutrophils % 90.6 %; White Blood Count 9.8 K/mcL (4.3-11.1)
[2019-12-15 04:15] LABS: BUN/Creatinine Ratio 35 (6-26); Blood Urea Nitrogen 18 mg/dL (8-23); Calcium 9.3 mg/dL (8.6-10.3); Carbon Dioxide 41 mEq/L (23-29); Chloride 97 mEq/L (98-107); Glucose 88 mg/dL (70-105); Osmolality,Calculated 291 (280-300); Potassium 3.8 mEq/L (3.5-5.1); Sodium 140 mEq/L (136-145); eGFR For African Americans > 60 (> 60); eGFR For Non-African Americans > 60 (> 60)
[2019-12-15 04:54] LABS: Magnesium 1.7 mg/dL (1.6-2.6)
[2019-12-15] MEDS: MethylPREDNISolone 40 MG/ML VIAL IVP SCH ×2 (05:22→18:15)
[2019-12-15] MEDS: Chlorhexidine Rinse 15 ML MOUTHWASH MM SCH (09:30)
[2019-12-15] MEDS: QUEtiapine Fumarate 25 MG TABLET PO SCH ×2 (09:31→21:31)
[2019-12-15] MEDS: Pantoprazole 40 MG VIAL IVP SCH (09:31)
[2019-12-15] MEDS ORDERED: *HR* Amiodarone 200 MG TABLET PO SCH (12:15)
[2019-12-15] MEDS ORDERED: Heparin 25,000UNIT/250ML 1/2NS 25,000 UNIT/250 ML IV.SOLN IVC SCH (14:24)
[2019-12-15] MEDS ORDERED: Artificial Tears SOLN 15 ML BOTTLE BOTH EYES PRN (14:24)
[2019-12-15] MEDS ORDERED: *HR* Dextrose 50 % in Water (Vial) 50 ML VIAL IVP PRN (14:24)
[2019-12-15] MEDS ORDERED: Dextrose Gel 15 GM/37.5 ML TUBE PO PRN ×2 (14:24)
[2019-12-15] MEDS ORDERED: *HR* Heparin 5,000 UNIT/ML VIAL IVP PRN ×2 (14:24)
[2019-12-15] MEDS ORDERED: Albuterol 2.5 MG/3 ML NEBULIZER IH PRN (14:24)
[2019-12-15] MEDS ORDERED: *HR* LORazepam 2 MG/ML VIAL IVP PRN (14:24)
[2019-12-15] MEDS ORDERED: Gabapentin 300 MG CAPSULE PO ONE (14:28)
[2019-12-15] MEDS: Furosemide 20 MG TABLET PO SCH (21:32)
[2019-12-15] MEDS: Budesonide/Formoterol 160/4.5 1 PUFF INH IH SCH (22:15)
[2019-12-16] MEDS ORDERED: Insulin LISPRO 300 UNITS/3 ML VIAL SQ ONE (00:45)
[2019-12-16] MEDS: Fluticasone Propionate Nasal 50 MCG/SPRAY BOTTLE NS SCH ×3 (00:47→20:56)
[2019-12-16] MEDS: Artificial Tears SOLN 15 ML BOTTLE BOTH EYES SCH ×7 (00:47→20:55)
[2019-12-16] MEDS: Levalbuterol Neb 1.25 MG/3 ML IH SCH ×4 (03:33→22:25)
[2019-12-16] MEDS: *HR* HYDROcodone/Acet 7.5/325 mg TABLET PO PRN ×2 (04:59→15:19)
[2019-12-16 05:30] LABS: Hematocrit 29.1 % (35.3-44.9); Hemoglobin 9.1 g/dL (11.5-15.4); Immature Granulocytes % 0.7 % (0-4); Lymphocytes # 0.4 K/mcL (0.6-4.6); Lymphocytes % 5.7 %; Mean Corpuscular HGB Conc 31.3 g/dL (31.6-35.5); Mean Corpuscular Hemoglobin 28.7 pg (28.0-33.3); Mean Corpuscular Volume 91.8 fL (83.0-100.0); Mean Platelet Volume 9.7 fL (9.4-12.4); Monocytes # 0.5 K/mcL (0.0-1.3); Monocytes % 7.4 %; Neutrophils # 6.2 K/mcL (1.6-8.9); Platelet Count 357 K/mcL (140-400); Red Blood Count 3.17 M/mcL (3.82-4.97); Red Cell Distribution Width 12.8 % (11.5-14.5); Segmented Neutrophils % 86.2 %; White Blood Count 7.2 K/mcL (4.3-11.1)
[2019-12-16 05:51] LABS: BUN/Creatinine Ratio 29 (6-26); Blood Urea Nitrogen 19 mg/dL (8-23); Calcium 9.2 mg/dL (8.6-10.3); Carbon Dioxide 39 mEq/L (23-29); Chloride 95 mEq/L (98-107); Glucose 106 mg/dL (70-105); Osmolality,Calculated 287 (280-300); Potassium 3.5 mEq/L (3.5-5.1); Sodium 137 mEq/L (136-145); eGFR For African Americans > 60 (> 60); eGFR For Non-African Americans > 60 (> 60)
[2019-12-16] MEDS: MethylPREDNISolone 40 MG/ML VIAL IVP SCH (07:35)
[2019-12-16] MEDS: Insulin LISPRO 300 UNITS/3 ML VIAL SQ SCH ×4 (07:59→20:56)
[2019-12-16] MEDS: QUEtiapine Fumarate 25 MG TABLET PO SCH ×2 (08:19→20:53)
[2019-12-16] MEDS: Gabapentin 300 MG CAPSULE PO SCH ×2 (08:19→20:54)
[2019-12-16] MEDS: Furosemide 20 MG TABLET PO SCH ×2 (08:19→20:53)
[2019-12-16] MEDS: Folic Acid 1 MG TABLET PO SCH (08:19)
[2019-12-16] MEDS: Nicotine 14 MG PATCH.TD24 TD SCH (08:20)
[2019-12-16] MEDS: Aspirin 81 MG TAB.CHEW PO SCH (08:20)
[2019-12-16] MEDS ORDERED: *HR* Amiodarone 200 MG TABLET PO SCH (09:00)
[2019-12-16] MEDS: *HR* Rivaroxaban 10 MG TABLET PO SCH (09:49)
[2019-12-16] MEDS: Budesonide/Formoterol 160/4.5 1 PUFF INH IH SCH ×2 (10:16→22:26)
[2019-12-17] MEDS: Levalbuterol Neb 1.25 MG/3 ML IH SCH ×4 (03:37→22:27)
[2019-12-17] MEDS: Artificial Tears SOLN 15 ML BOTTLE BOTH EYES SCH ×6 (04:37→22:08)
[2019-12-17 07:09] LABS: Hematocrit 30.9 % (35.3-44.9); Mean Corpuscular HGB Conc 32.4 g/dL (31.6-35.5); Mean Corpuscular Volume 89.6 fL (83.0-100.0); Mean Platelet Volume 10.5 fL (9.4-12.4); Platelet Count 314 K/mcL (140-400); Red Blood Count 3.45 M/mcL (3.82-4.97); White Blood Count 8.3 K/mcL (4.3-11.1)
[2019-12-17 07:22] LABS: BUN/Creatinine Ratio 28 (6-26); Blood Urea Nitrogen 17 mg/dL (8-23); Calcium 9.3 mg/dL (8.6-10.3); Carbon Dioxide 34 mEq/L (23-29); Chloride 98 mEq/L (98-107); Glucose 94 mg/dL (70-105); Osmolality,Calculated 285 (280-300); Potassium 4.1 mEq/L (3.5-5.1); Sodium 137 mEq/L (136-145); eGFR For African Americans > 60 (> 60); eGFR For Non-African Americans > 60 (> 60)
[2019-12-17] MEDS: Nicotine 14 MG PATCH.TD24 TD SCH (08:15)
[2019-12-17] MEDS: Aspirin 81 MG TAB.CHEW PO SCH (08:15)
[2019-12-17] MEDS: *HR* Rivaroxaban 10 MG TABLET PO SCH (08:15)
[2019-12-17] MEDS: Furosemide 20 MG TABLET PO SCH ×2 (08:16→22:09)
[2019-12-17] MEDS: Folic Acid 1 MG TABLET PO SCH (08:16)
[2019-12-17] MEDS: Gabapentin 300 MG CAPSULE PO SCH ×2 (08:16→22:09)
[2019-12-17] MEDS: predniSONE 20 MG TABLET PO SCH (08:16)
[2019-12-17] MEDS: *HR* HYDROcodone/Acet 7.5/325 mg TABLET PO PRN (08:16)
[2019-12-17] MEDS: Fluticasone Propionate Nasal 50 MCG/SPRAY BOTTLE NS SCH ×2 (08:17→22:08)
[2019-12-17] MEDS: Insulin LISPRO 300 UNITS/3 ML VIAL SQ SCH ×4 (08:17→22:10)
[2019-12-17] MEDS: Budesonide/Formoterol 160/4.5 1 PUFF INH IH SCH ×2 (10:26→22:26)
[2019-12-17] MEDS: Tiotropium 18 MCG inhalation IH SCH (10:26)
[2019-12-17] MEDS: Sennosides 8.6 MG TABLET PO SCH ×2 (11:44→22:08)
[2019-12-17] MEDS: ALPRAZolam 0.5 MG TABLET PO PRN (16:36)
[2019-12-17] MEDS: QUEtiapine Fumarate 25 MG TABLET PO SCH (22:09)
[2019-12-18] MEDS: Artificial Tears SOLN 15 ML BOTTLE BOTH EYES SCH ×7 (00:15→23:48)
[2019-12-18] MEDS: Levalbuterol Neb 1.25 MG/3 ML IH SCH ×4 (04:26→21:17)
[2019-12-18 06:51] LABS: Eosinophils % 0.5 %; Hemoglobin 10.4 g/dL (11.5-15.4); Immature Granulocytes % 0.6 % (0-4); Lymphocytes # 1.7 K/mcL (0.6-4.6); Lymphocytes % 24.9 %; Mean Corpuscular HGB Conc 30.6 g/dL (31.6-35.5); Mean Corpuscular Hemoglobin 29.2 pg (28.0-33.3); Mean Corpuscular Volume 95.5 fL (83.0-100.0); Mean Platelet Volume 9.2 fL (9.4-12.4); Monocytes # 0.5 K/mcL (0.0-1.3); Monocytes % 8.1 %; Neutrophils # 4.4 K/mcL (1.6-8.9); Platelet Count 321 K/mcL (140-400); Red Blood Count 3.56 M/mcL (3.82-4.97); Segmented Neutrophils % 65.9 %; White Blood Count 6.6 K/mcL (4.3-11.1)
[2019-12-18 07:10] LABS: BUN/Creatinine Ratio 28 (6-26); Blood Urea Nitrogen 15 mg/dL (8-23); Calcium 9.3 mg/dL (8.6-10.3); Carbon Dioxide 38 mEq/L (23-29); Chloride 95 mEq/L (98-107); Glucose 81 mg/dL (70-105); Osmolality,Calculated 290 (280-300); Potassium 3.3 mEq/L (3.5-5.1); Sodium 140 mEq/L (136-145); eGFR For African Americans > 60 (> 60); eGFR For Non-African Americans > 60 (> 60)
[2019-12-18] MEDS: Insulin LISPRO 300 UNITS/3 ML VIAL SQ SCH ×4 (08:31→22:57)
[2019-12-18] MEDS: Sennosides 8.6 MG TABLET PO SCH ×2 (08:38→20:36)
[2019-12-18] MEDS: Furosemide 20 MG TABLET PO SCH ×2 (08:38→20:36)
[2019-12-18] MEDS: Folic Acid 1 MG TABLET PO SCH (08:38)
[2019-12-18] MEDS: *HR* Rivaroxaban 10 MG TABLET PO SCH (08:38)
[2019-12-18] MEDS: Aspirin 81 MG TAB.CHEW PO SCH (08:38)
[2019-12-18] MEDS: predniSONE 20 MG TABLET PO SCH (08:38)
[2019-12-18] MEDS: Gabapentin 300 MG CAPSULE PO SCH ×2 (08:38→20:36)
[2019-12-18] MEDS: Nicotine 14 MG PATCH.TD24 TD SCH (08:39)
[2019-12-18] MEDS ORDERED: Potassium Chloride Elixir 20 MEQ/15 ML UDC PO SCH (09:15)
[2019-12-18] MEDS: Budesonide/Formoterol 160/4.5 1 PUFF INH IH SCH ×2 (10:56→21:17)
[2019-12-18] MEDS: Tiotropium 18 MCG inhalation IH SCH (10:57)
[2019-12-18] MEDS: Fluticasone Propionate Nasal 50 MCG/SPRAY BOTTLE NS SCH ×2 (11:21→20:36)
[2019-12-18] MEDS: ALPRAZolam 0.5 MG TABLET PO PRN (20:36)
[2019-12-18] MEDS: QUEtiapine Fumarate 25 MG TABLET PO SCH (20:36)
[2019-12-19] MEDS: Levalbuterol Neb 1.25 MG/3 ML IH SCH ×3 (03:39→15:23)
[2019-12-19] MEDS: Artificial Tears SOLN 15 ML BOTTLE BOTH EYES SCH ×4 (04:19→14:57)
[2019-12-19 05:51] LABS: Basophils % 0.1 %; Eosinophils % 0.5 %; Hematocrit 32.7 % (35.3-44.9); Hemoglobin 10.3 g/dL (11.5-15.4); Immature Granulocytes % 0.6 % (0-4); Lymphocytes # 1.7 K/mcL (0.6-4.6); Lymphocytes % 19.7 %; Mean Corpuscular HGB Conc 31.5 g/dL (31.6-35.5); Mean Corpuscular Hemoglobin 29.3 pg (28.0-33.3); Mean Corpuscular Volume 93.2 fL (83.0-100.0); Mean Platelet Volume 9.6 fL (9.4-12.4); Monocytes # 0.5 K/mcL (0.0-1.3); Neutrophils # 6.4 K/mcL (1.6-8.9); Platelet Count 331 K/mcL (140-400); Red Blood Count 3.51 M/mcL (3.82-4.97); Red Cell Distribution Width 13.1 % (11.5-14.5); Segmented Neutrophils % 73.1 %; White Blood Count 8.7 K/mcL (4.3-11.1)
[2019-12-19 06:14] LABS: BUN/Creatinine Ratio 35 (6-26); Blood Urea Nitrogen 20 mg/dL (8-23); Calcium 9.1 mg/dL (8.6-10.3); Carbon Dioxide 35 mEq/L (23-29); Chloride 96 mEq/L (98-107); Glucose 115 mg/dL (70-105); Magnesium 1.4 mg/dL (1.6-2.6); Osmolality,Calculated 288 (280-300); Phosphorous 2.9 mg/dL (2.7-4.5); Potassium 3.8 mEq/L (3.5-5.1); Sodium 137 mEq/L (136-145); eGFR For African Americans > 60 (> 60); eGFR For Non-African Americans > 60 (> 60)
[2019-12-19] MEDS: Insulin LISPRO 300 UNITS/3 ML VIAL SQ SCH ×3 (07:52→17:17)
[2019-12-19] MEDS: Gabapentin 300 MG CAPSULE PO SCH (07:56)
[2019-12-19] MEDS: Aspirin 81 MG TAB.CHEW PO SCH (07:57)
[2019-12-19] MEDS: Sennosides 8.6 MG TABLET PO SCH (07:57)
[2019-12-19] MEDS: *HR* Rivaroxaban 10 MG TABLET PO SCH (07:57)
[2019-12-19] MEDS: Nicotine 14 MG PATCH.TD24 TD SCH (07:57)
[2019-12-19] MEDS: Furosemide 20 MG TABLET PO SCH (07:57)
[2019-12-19] MEDS: Folic Acid 1 MG TABLET PO SCH (07:58)
[2019-12-19] MEDS: Fluticasone Propionate Nasal 50 MCG/SPRAY BOTTLE NS SCH (08:01)
[2019-12-19] MEDS ORDERED: predniSONE 20 MG TABLET PO SCH (09:00)
[2019-12-19] MEDS: Tiotropium 18 MCG inhalation IH SCH (10:27)
[2019-12-19] MEDS: Budesonide/Formoterol 160/4.5 1 PUFF INH IH SCH (10:28)
[2019-12-19] MEDS ORDERED: Artificial Tears SOLN 15 ML BOTTLE BOTH EYES PRN (10:49)
[2019-12-19] MEDS: *HR* HYDROcodone/Acet 7.5/325 mg TABLET PO PRN (13:46)
[2019-12-19] MEDS: ALPRAZolam 0.5 MG TABLET PO PRN (13:46)
[2019-12-19 14:45] VITALS: BP 128/68
== END 2019-12-19 18:35 | DRG 720 ==
LOC: ICNU → SUATTDRO 12-06 10:17 → 3ANU 12-15 17:35
PROVIDERS: ADMIT Family Medicine; ATTEND Internal Medicine

== ENCOUNTER 2020-01-24 01:54 | Inpatient (IN) ==
[2020-01-24] MEDS ORDERED: 0.9 % Sodium Chloride 1,000 ML ONE (02:18)
[2020-01-24] MEDS ORDERED: Heparin 1,000 UNITS/500 mL 500 ML ONE (02:18)
[2020-01-24] MEDS ORDERED: *HR* Heparin 10,000 UNIT/10 ML VIAL ONE (02:18)
[2020-01-24] MEDS ORDERED: ISOVUE-370 200 ML INFUS..BTL ONE (02:18)
[2020-01-24] MEDS ORDERED: Nitroglycerin 1,000 MCG/10 ML VIAL IV ONE (02:19)
[2020-01-24] MEDS ORDERED: *HR* Midazolam HCl 2 MG/2 ML VIAL ONE (02:32)
[2020-01-24] MEDS ORDERED: *HR* FentaNYL (PF) 100 MCG/2 ML VIAL ONE (02:33)
[2020-01-24] MEDS ORDERED: Amiodarone Premix 150 MG/100 ML BAG IVPB ONE (03:46)
[2020-01-24] MEDS ORDERED: Amiodarone Premix 360 MG/200 ML BAG IVC ONE (03:46)
[2020-01-24] MEDS ORDERED: Naloxone 0.4 MG/ML INJ IVP PRN (03:52)
[2020-01-24] MEDS ORDERED: Ondansetron 4 MG/2 ML VIAL IVP PRN (03:52)
[2020-01-24] MEDS ORDERED: Furosemide 40 MG/4 ML VIAL ONE ×2 (04:00→04:05)
[2020-01-24] MEDS ORDERED: D5% in Water 1,000 ML IVC PRN (04:52)
[2020-01-24] MEDS ORDERED: *HR* Dextrose 50 % in Water (Vial) 50 ML VIAL IVP PRN (04:52)
[2020-01-24] MEDS ORDERED: *HR* Heparin 5,000 UNIT/ML VIAL IVP PRN ×2 (04:52)
[2020-01-24] MEDS ORDERED: Dextrose Gel 15 GM/37.5 ML TUBE PO PRN ×2 (04:52)
[2020-01-24 04:54] LABS: Basophils % 0.4 %; Eosinophils # 0.1 K/mcL (0.0-0.6); Eosinophils % 1.1 %; Hematocrit 33.1 % (35.3-44.9); Hemoglobin 9.3 g/dL (11.5-15.4); Immature Granulocytes % 0.7 % (0-4); Lymphocytes # 1.7 K/mcL (0.6-4.6); Lymphocytes % 24.2 %; Mean Corpuscular HGB Conc 28.1 g/dL (31.6-35.5); Mean Corpuscular Hemoglobin 28.8 pg (28.0-33.3); Mean Corpuscular Volume 102.5 fL (83.0-100.0); Mean Platelet Volume 9.7 fL (9.4-12.4); Monocytes # 0.5 K/mcL (0.0-1.3); Monocytes % 6.8 %; Neutrophils # 4.8 K/mcL (1.6-8.9); Nucleated Red Blood Cells 0.4 /100 WBC (0); Platelet Count 263 K/mcL (140-400); Red Blood Count 3.23 M/mcL (3.82-4.97); Red Cell Distribution Width 14.8 % (11.5-14.5); Segmented Neutrophils % 66.8 %; White Blood Count 7.2 K/mcL (4.3-11.1)
[2020-01-24] MEDS ORDERED: Heparin 25,000UNIT/250ML 1/2NS 25,000 UNIT/250 ML IV.SOLN IVC SCH (05:00)
[2020-01-24] MEDS: Amiodarone Premix 360 MG/200 ML BAG IVC ONE ×2 (05:05→10:38)
[2020-01-24 05:08] LABS: INR 1.9
[2020-01-24] MEDS ORDERED: Levalbuterol Neb 0.63 MG/3 ML ONE (05:47)
[2020-01-24] MEDS: Levalbuterol Neb 0.63 MG/3 ML IH SCH ×4 (05:50→22:14)
[2020-01-24 05:52] LABS: Red Cell Distribution Width 14.7 % (11.5-14.5)
[2020-01-24 05:53] LABS: Hematocrit 37.5 % (35.3-44.9); Hemoglobin 10.5 g/dL (11.5-15.4); Mean Corpuscular Hemoglobin 28.9 pg (28.0-33.3); Mean Corpuscular Volume 103.3 fL (83.0-100.0); Mean Platelet Volume 9.5 fL (9.4-12.4); Platelet Count 284 K/mcL (140-400); Red Blood Count 3.63 M/mcL (3.82-4.97)
[2020-01-24 06:10] LABS: Alanine Aminotransferase 34 Units/L (7-52); Albumin 3.7 g/dL (3.5-5.7); Albumin/Globulin Ratio 1.3 (1.1-2.2); Alkaline Phosphatase 85 Units/L (34-104); Aspartate Amino Transferase 19 Units/L (13-39); BUN/Creatinine Ratio 27 (6-26); Bilirubin,Total 0.4 mg/dL (0.3-1.0); Blood Urea Nitrogen 23 mg/dL (8-23); Calcium 9.4 mg/dL (8.6-10.3); Carbon Dioxide 38 mEq/L (23-29); Chloride 99 mEq/L (98-107); Globulin 2.9 g/dL (2.4-3.5); Glucose 173 mg/dL (70-105); Magnesium 2.1 mg/dL (1.6-2.6); Osmolality,Calculated 298 (280-300); Sodium 140 mEq/L (136-145); Total Protein 6.6 g/dL (6.4-8.9); eGFR For African Americans > 60 (> 60); eGFR For Non-African Americans > 60 (> 60)
[2020-01-24 06:26] LABS: Anisocytosis 1+ (Not Present); Macrocytosis Present (Not Present); Platelet Estimate Normal (Normal)
[2020-01-24 06:40] LABS: Activated Partial Thrombo Time 36.4 Seconds (26.0-36.0)
[2020-01-24 06:46] LABS: Heparin anti-factor XA UFH 1.04 IU/mL (0.30-0.70)
[2020-01-24] MEDS: Insulin LISPRO 300 UNITS/3 ML VIAL SQ SCH ×3 (07:01→18:16)
[2020-01-24] MEDS: Aspirin 81 MG TAB.CHEW PO SCH (09:17)
[2020-01-24] MEDS: Budesonide/Formoterol 160/4.5 1 PUFF INH IH SCH ×2 (10:21→22:14)
[2020-01-24] MEDS: Amiodarone Premix 360 MG/200 ML BAG IVC SCH ×2 (11:22→22:10)
[2020-01-24] MEDS ORDERED: Furosemide 40 MG/4 ML VIAL IVP SCH (11:30)
[2020-01-24] MEDS ORDERED: *HR* Digoxin 0.5 MG/2 ML AMPUL IVP ONE (13:59)
[2020-01-24] MEDS ORDERED: 0.9 % Sodium Chloride 500 ML IVC ONE (14:05)
[2020-01-24] MEDS ORDERED: Perflutren Lipid Microsphere 1.3 ML in 0.9 % Sodium Chloride 8.7 ML IVP PRN (14:23)
[2020-01-24 15:06] LABS: Basophils % 0.5 %; Hemoglobin 9.3 g/dL (11.5-15.4)
[2020-01-24 15:08] LABS: Eosinophils % 0.7 %; Hematocrit 33.1 % (35.3-44.9); Immature Granulocytes % 0.8 % (0-4); Lymphocytes # 1.3 K/mcL (0.6-4.6); Lymphocytes % 20.8 %; Mean Corpuscular HGB Conc 28.1 g/dL (31.6-35.5); Mean Corpuscular Hemoglobin 28.8 pg (28.0-33.3); Mean Corpuscular Volume 102.5 fL (83.0-100.0); Mean Platelet Volume 9.6 fL (9.4-12.4); Monocytes # 0.6 K/mcL (0.0-1.3); Monocytes % 9.8 %; Neutrophils # 4.1 K/mcL (1.6-8.9); Platelet Count 251 K/mcL (140-400); Red Blood Count 3.23 M/mcL (3.82-4.97); Red Cell Distribution Width 14.7 % (11.5-14.5); Segmented Neutrophils % 67.4 %; White Blood Count 6.1 K/mcL (4.3-11.1)
[2020-01-24 15:30] LABS: BUN/Creatinine Ratio 31 (6-26); Blood Urea Nitrogen 24 mg/dL (8-23); Calcium 8.9 mg/dL (8.6-10.3); Carbon Dioxide 42 mEq/L (23-29); Chloride 96 mEq/L (98-107); Glucose 141 mg/dL (70-105); Osmolality,Calculated 300 (280-300); Potassium 4.3 mEq/L (3.5-5.1); Sodium 142 mEq/L (136-145); eGFR For African Americans > 60 (> 60); eGFR For Non-African Americans > 60 (> 60)
[2020-01-24 15:42] LABS: Hypochromasia Present (Not Present); Platelet Estimate Normal (Normal)
[2020-01-24] MEDS: *HR* Rivaroxaban 10 MG TABLET PO SCH (16:58)
[2020-01-24] MEDS: Acetaminophen 325 MG TABLET PO PRN ×2 (16:58→20:20)
[2020-01-24] MEDS: Gabapentin 300 MG CAPSULE PO SCH (20:21)
[2020-01-24] MEDS: Furosemide 20 MG/2 ML VIAL IVP SCH (20:21)
[2020-01-25] MEDS: *HR* Digoxin 0.5 MG/2 ML AMPUL IVP SCH ×2 (00:04→06:24)
[2020-01-25] MEDS: *HR* HYDROcodone/Acet 7.5/325 mg TABLET PO PRN ×2 (03:24→22:22)
[2020-01-25] MEDS: Levalbuterol Neb 0.63 MG/3 ML IH SCH ×4 (03:54→21:50)
[2020-01-25] MEDS ORDERED: Perflutren Lipid Microsphere 1.3 ML in 0.9 % Sodium Chloride 8.7 ML IVP PRN (08:13)
[2020-01-25 10:03] LABS: Hematocrit 34.7 % (35.3-44.9); Hemoglobin 10.3 g/dL (11.5-15.4); Mean Corpuscular HGB Conc 29.7 g/dL (31.6-35.5); Mean Corpuscular Hemoglobin 30.3 pg (28.0-33.3); Mean Corpuscular Volume 102.1 fL (83.0-100.0); Mean Platelet Volume 9.7 fL (9.4-12.4); Platelet Count 289 K/mcL (140-400); Red Cell Distribution Width 14.6 % (11.5-14.5)
[2020-01-25] MEDS: Budesonide/Formoterol 160/4.5 1 PUFF INH IH SCH ×2 (10:09→21:51)
[2020-01-25 10:22] LABS: BUN/Creatinine Ratio 28 (6-26); Blood Urea Nitrogen 19 mg/dL (8-23); Calcium 9.2 mg/dL (8.6-10.3); Carbon Dioxide 42 mEq/L (23-29); Chloride 96 mEq/L (98-107); Glucose 103 mg/dL (70-105); Magnesium 1.9 mg/dL (1.6-2.6); Osmolality,Calculated 291 (280-300); Potassium 4.2 mEq/L (3.5-5.1); Sodium 139 mEq/L (136-145); eGFR For African Americans > 60 (> 60); eGFR For Non-African Americans > 60 (> 60)
[2020-01-25] MEDS: Furosemide 20 MG/2 ML VIAL IVP SCH ×2 (10:51→20:50)
[2020-01-25] MEDS: Aspirin 81 MG TAB.CHEW PO SCH (10:51)
[2020-01-25] MEDS: Gabapentin 300 MG CAPSULE PO SCH ×2 (10:52→20:49)
[2020-01-25] MEDS: *HR* Rivaroxaban 10 MG TABLET PO SCH (16:48)
[2020-01-25] MEDS ORDERED: *HR* Digoxin 0.5 MG/2 ML AMPUL IVP SCH (21:00)
[2020-01-26] MEDS: Acetaminophen 325 MG TABLET PO PRN (01:50)
[2020-01-26] MEDS: Levalbuterol Neb 0.63 MG/3 ML IH SCH ×4 (03:39→21:30)
[2020-01-26 05:56] LABS: VBG HCO3 45 mEq/L (21-27); VBG PCO2 90 mmHg (41-51); VBG PH 7.31 pH Units (7.32-7.42); VBG PO2 36 mmHg (25-50)
[2020-01-26 06:04] LABS: Hemoglobin 9.7 g/dL (11.5-15.4); Mean Platelet Volume 9.3 fL (9.4-12.4); Red Cell Distribution Width 14.6 % (11.5-14.5)
[2020-01-26 06:05] LABS: Mean Corpuscular HGB Conc 28.5 g/dL (31.6-35.5); Mean Corpuscular Hemoglobin 28.9 pg (28.0-33.3); Mean Corpuscular Volume 101.2 fL (83.0-100.0); Platelet Count 278 K/mcL (140-400); Red Blood Count 3.36 M/mcL (3.82-4.97); White Blood Count 5.3 K/mcL (4.3-11.1)
[2020-01-26 06:12] LABS: BUN/Creatinine Ratio 22 (6-26); Blood Urea Nitrogen 15 mg/dL (8-23); Calcium 9.1 mg/dL (8.6-10.3); Carbon Dioxide > 45 mEq/L (23-29); Chloride 95 mEq/L (98-107); Glucose 95 mg/dL (70-105); Magnesium 1.8 mg/dL (1.6-2.6); Osmolality,Calculated 295 (280-300); Potassium 4.1 mEq/L (3.5-5.1); Sodium 142 mEq/L (136-145); eGFR For African Americans > 60 (> 60); eGFR For Non-African Americans > 60 (> 60)
[2020-01-26 08:18] LABS: ABG Base Excess 23 mEq/L (-2 to 3); ABG HCO3 53 mEq/L (21-27); ABG Oxygen Saturation 89 % (95-98); ABG PCO2 96 mmHg (35-45); ABG PH 7.35 pH Units (7.32-7.45); ABG PO2 65 mmHg (85-104); ABG TCO2 > 50 mEq/L (20-26)
[2020-01-26] MEDS: Furosemide 20 MG/2 ML VIAL IVP SCH ×2 (08:32→19:49)
[2020-01-26] MEDS: Gabapentin 300 MG CAPSULE PO SCH ×2 (08:33→20:40)
[2020-01-26] MEDS: *HR* HYDROcodone/Acet 7.5/325 mg TABLET PO PRN ×2 (08:33→19:52)
[2020-01-26] MEDS: Aspirin 81 MG TAB.CHEW PO SCH (08:33)
[2020-01-26] MEDS ORDERED: *HR* Digoxin 0.5 MG/2 ML AMPUL IVP SCH (09:00)
[2020-01-26] MEDS: Budesonide/Formoterol 160/4.5 1 PUFF INH IH SCH ×2 (09:45→21:30)
[2020-01-26] MEDS ORDERED: Saline Nasal Spray 44 ML BOTTLE NS PRN (12:35)
[2020-01-26] MEDS: *HR* Rivaroxaban 10 MG TABLET PO SCH (17:29)
[2020-01-26] MEDS: *HR* LORazepam 0.5 MG TABLET PO PRN (19:52)
[2020-01-27] MEDS: Levalbuterol Neb 0.63 MG/3 ML IH SCH ×4 (03:22→21:13)
[2020-01-27 04:40] LABS: Hemoglobin 8.8 g/dL (11.5-15.4); Mean Corpuscular HGB Conc 28.4 g/dL (31.6-35.5); Mean Platelet Volume 9.1 fL (9.4-12.4)
[2020-01-27 04:41] LABS: Mean Corpuscular Hemoglobin 28.3 pg (28.0-33.3); Mean Corpuscular Volume 99.7 fL (83.0-100.0); Platelet Count 259 K/mcL (140-400); Red Blood Count 3.11 M/mcL (3.82-4.97); Red Cell Distribution Width 14.6 % (11.5-14.5); White Blood Count 4.7 K/mcL (4.3-11.1)
[2020-01-27 04:44] LABS: VBG HCO3 45 mEq/L (21-27); VBG PCO2 73 mmHg (41-51); VBG PO2 118 mmHg (25-50)
[2020-01-27 04:58] LABS: BUN/Creatinine Ratio 21 (6-26); Blood Urea Nitrogen 13 mg/dL (8-23); Calcium 8.8 mg/dL (8.6-10.3); Carbon Dioxide > 45 mEq/L (23-29); Chloride 95 mEq/L (98-107); Glucose 90 mg/dL (70-105); Magnesium 1.7 mg/dL (1.6-2.6); Osmolality,Calculated 296 (280-300); Potassium 3.9 mEq/L (3.5-5.1); Sodium 143 mEq/L (136-145); eGFR For African Americans > 60 (> 60); eGFR For Non-African Americans > 60 (> 60)
[2020-01-27 05:25] LABS: ABG Base Excess 23 mEq/L (-2 to 3); ABG HCO3 52 mEq/L (21-27); ABG Oxygen Saturation 94 % (95-98); ABG PCO2 85 mmHg (35-45); ABG PO2 78 mmHg (85-104); ABG TCO2 > 50 mEq/L (20-26); Blood Gas Modality AVAPS; Blood Gas VT 500 cc
[2020-01-27] MEDS: Gabapentin 300 MG CAPSULE PO SCH ×2 (08:52→19:56)
[2020-01-27] MEDS: *HR* Digoxin 0.125 MG TABLET PO SCH (08:52)
[2020-01-27] MEDS: Aspirin 81 MG TAB.CHEW PO SCH (08:53)
[2020-01-27] MEDS: Furosemide 20 MG/2 ML VIAL IVP SCH (08:53)
[2020-01-27] MEDS: *HR* HYDROcodone/Acet 7.5/325 mg TABLET PO PRN ×2 (09:00→19:56)
[2020-01-27] MEDS: Budesonide/Formoterol 160/4.5 1 PUFF INH IH SCH ×2 (09:44→21:13)
[2020-01-27] MEDS ORDERED: MethylPREDNISolone 40 MG/ML VIAL IVP ONE (13:53)
[2020-01-27] MEDS: *HR* Rivaroxaban 10 MG TABLET PO SCH (17:52)
[2020-01-27] MEDS: Furosemide 20 MG TABLET PO SCH (17:52)
[2020-01-27] MEDS: *HR* LORazepam 0.5 MG TABLET PO PRN (19:56)
[2020-01-27] MEDS ORDERED: hydrOXYzine pamoate 25 MG CAPSULE PO ONE (23:32)
[2020-01-28] MEDS: Levalbuterol Neb 0.63 MG/3 ML IH SCH ×4 (03:16→21:46)
[2020-01-28 06:20] LABS: VBG HCO3 43 mEq/L (21-27); VBG PCO2 74 mmHg (41-51); VBG PH 7.37 pH Units (7.32-7.42); VBG PO2 106 mmHg (25-50)
[2020-01-28 06:22] LABS: Hemoglobin 9.2 g/dL (11.5-15.4)
[2020-01-28 06:23] LABS: Hematocrit 31.7 % (35.3-44.9); Mean Corpuscular Volume 96.6 fL (83.0-100.0); Platelet Count 300 K/mcL (140-400); Red Blood Count 3.28 M/mcL (3.82-4.97); White Blood Count 5.4 K/mcL (4.3-11.1)
[2020-01-28 06:40] LABS: BUN/Creatinine Ratio 25 (6-26); Blood Urea Nitrogen 15 mg/dL (8-23); Calcium 9.3 mg/dL (8.6-10.3); Carbon Dioxide > 45 mEq/L (23-29); Chloride 94 mEq/L (98-107); Glucose 167 mg/dL (70-105); Magnesium 1.7 mg/dL (1.6-2.6); Osmolality,Calculated 293 (280-300); Phosphorous 2.6 mg/dL (2.7-4.5); Potassium 4.1 mEq/L (3.5-5.1); Sodium 139 mEq/L (136-145); eGFR For African Americans > 60 (> 60); eGFR For Non-African Americans > 60 (> 60)
[2020-01-28] MEDS: Aspirin 81 MG TAB.CHEW PO SCH (09:18)
[2020-01-28] MEDS: Gabapentin 300 MG CAPSULE PO SCH ×2 (09:18→19:57)
[2020-01-28] MEDS: *HR* Digoxin 0.125 MG TABLET PO SCH (09:19)
[2020-01-28] MEDS: Furosemide 20 MG TABLET PO SCH ×2 (09:19→16:22)
[2020-01-28] MEDS: predniSONE 20 MG TABLET PO SCH (09:19)
[2020-01-28] MEDS: Budesonide/Formoterol 160/4.5 1 PUFF INH IH SCH ×2 (11:05→21:46)
[2020-01-28] MEDS: *HR* HYDROcodone/Acet 7.5/325 mg TABLET PO PRN ×2 (11:46→19:57)
[2020-01-28] MEDS ORDERED: Furosemide 20 MG/2 ML VIAL IVP ONE (14:59)
[2020-01-28] MEDS ORDERED: *HR* Metoprolol 5 MG/5 ML VIAL IVP PRN (15:09)
[2020-01-28 16:04] LABS: Digoxin 1.5 ng/mL (0.8-2.0)
[2020-01-28] MEDS: polyethylene glycoL 3350 17 GM POWD.PACK PO SCH (16:21)
[2020-01-28] MEDS: *HR* Rivaroxaban 10 MG TABLET PO SCH (17:18)
[2020-01-28] MEDS: *HR* LORazepam 0.5 MG TABLET PO PRN (19:57)
[2020-01-28] MEDS: hydrOXYzine pamoate 25 MG CAPSULE PO PRN (22:21)
[2020-01-29] MEDS: Levalbuterol Neb 0.63 MG/3 ML IH SCH ×4 (04:14→22:14)
[2020-01-29] MEDS: predniSONE 20 MG TABLET PO SCH (08:07)
[2020-01-29] MEDS: Gabapentin 300 MG CAPSULE PO SCH ×2 (08:07→22:30)
[2020-01-29] MEDS: Aspirin 81 MG TAB.CHEW PO SCH (08:07)
[2020-01-29] MEDS: polyethylene glycoL 3350 17 GM POWD.PACK PO SCH (08:08)
[2020-01-29 08:52] LABS: ABG Base Excess 16 mEq/L (-2 to 3); ABG HCO3 45 mEq/L (21-27); ABG Oxygen Saturation 94 % (95-98); ABG PCO2 75 mmHg (35-45); ABG PH 7.38 pH Units (7.32-7.45); ABG PO2 78 mmHg (85-104); ABG TCO2 47 mEq/L (20-26)
[2020-01-29 09:12] LABS: Hematocrit 34.2 % (35.3-44.9); Hemoglobin 9.7 g/dL (11.5-15.4); Mean Corpuscular HGB Conc 28.4 g/dL (31.6-35.5)
[2020-01-29 09:13] LABS: Mean Corpuscular Hemoglobin 27.9 pg (28.0-33.3); Mean Corpuscular Volume 98.3 fL (83.0-100.0); Platelet Count 327 K/mcL (140-400); Red Blood Count 3.48 M/mcL (3.82-4.97); Red Cell Distribution Width 14.6 % (11.5-14.5); White Blood Count 7.9 K/mcL (4.3-11.1)
[2020-01-29 09:41] LABS: BUN/Creatinine Ratio 34 (6-26); Blood Urea Nitrogen 21 mg/dL (8-23); Calcium 9.5 mg/dL (8.6-10.3); Carbon Dioxide > 45 mEq/L (23-29); Chloride 93 mEq/L (98-107); Glucose 88 mg/dL (70-105); Osmolality,Calculated 296 (280-300); Potassium 3.7 mEq/L (3.5-5.1); Sodium 142 mEq/L (136-145); eGFR For African Americans > 60 (> 60); eGFR For Non-African Americans > 60 (> 60)
[2020-01-29] MEDS: *HR* Digoxin 0.125 MG TABLET PO SCH (10:18)
[2020-01-29] MEDS: Furosemide 20 MG TABLET PO SCH ×2 (10:18→17:13)
[2020-01-29] MEDS: Budesonide/Formoterol 160/4.5 1 PUFF INH IH SCH ×2 (10:54→22:14)
[2020-01-29] MEDS ORDERED: Amiodarone Premix 360 MG/200 ML BAG IVC ONE (13:16)
[2020-01-29] MEDS ORDERED: Amiodarone Premix 150 MG/100 ML BAG IVPB ONE (13:16)
[2020-01-29] MEDS: *HR* HYDROcodone/Acet 7.5/325 mg TABLET PO PRN (13:37)
[2020-01-29] MEDS: Ipratropium Neb 0.5 MG NEBULIZER IH SCH ×2 (16:06→22:14)
[2020-01-29] MEDS: *HR* Rivaroxaban 10 MG TABLET PO SCH (17:13)
[2020-01-29] MEDS: Amiodarone Premix 360 MG/200 ML BAG IVC SCH (20:30)
[2020-01-29] MEDS: hydrOXYzine pamoate 25 MG CAPSULE PO PRN (22:30)
[2020-01-30] MEDS: *HR* HYDROcodone/Acet 7.5/325 mg TABLET PO PRN ×3 (00:03→20:30)
[2020-01-30] MEDS: *HR* LORazepam 0.5 MG TABLET PO PRN ×2 (00:04→22:07)
[2020-01-30] MEDS: Ipratropium Neb 0.5 MG NEBULIZER IH SCH ×4 (03:46→22:46)
[2020-01-30] MEDS: Levalbuterol Neb 0.63 MG/3 ML IH SCH ×4 (03:46→22:46)
[2020-01-30 05:42] LABS: Hematocrit 31.4 % (35.3-44.9); Mean Corpuscular HGB Conc 28.7 g/dL (31.6-35.5); Red Cell Distribution Width 14.4 % (11.5-14.5)
[2020-01-30 05:44] LABS: Mean Corpuscular Hemoglobin 27.6 pg (28.0-33.3); Mean Corpuscular Volume 96.3 fL (83.0-100.0); Platelet Count 293 K/mcL (140-400); Red Blood Count 3.26 M/mcL (3.82-4.97); White Blood Count 7.7 K/mcL (4.3-11.1)
[2020-01-30 06:37] LABS: BUN/Creatinine Ratio 41 (6-26); Blood Urea Nitrogen 26 mg/dL (8-23); Calcium 9.1 mg/dL (8.6-10.3); Carbon Dioxide 43 mEq/L (23-29); Chloride 93 mEq/L (98-107); Glucose 118 mg/dL (70-105); Osmolality,Calculated 294 (280-300); Potassium 3.8 mEq/L (3.5-5.1); Sodium 139 mEq/L (136-145); eGFR For African Americans > 60 (> 60); eGFR For Non-African Americans > 60 (> 60)
[2020-01-30] MEDS: Aspirin 81 MG TAB.CHEW PO SCH (07:57)
[2020-01-30] MEDS: *HR* Digoxin 0.125 MG TABLET PO SCH (07:57)
[2020-01-30] MEDS: Gabapentin 300 MG CAPSULE PO SCH ×2 (07:57→20:29)
[2020-01-30] MEDS: Furosemide 20 MG TABLET PO SCH ×2 (07:57→16:46)
[2020-01-30] MEDS: predniSONE 20 MG TABLET PO SCH (07:58)
[2020-01-30] MEDS: polyethylene glycoL 3350 17 GM POWD.PACK PO SCH (07:58)
[2020-01-30] MEDS: Amiodarone Premix 360 MG/200 ML BAG IVC SCH (08:01)
[2020-01-30] MEDS: Budesonide/Formoterol 160/4.5 1 PUFF INH IH SCH ×2 (09:57→22:45)
[2020-01-30] MEDS ORDERED: 0.9 % Sodium Chloride 500 ML IVC ONE (13:12)
[2020-01-30] MEDS: *HR* FentaNYL (PF) 100 MCG/2 ML VIAL IVP PRN ×3 (13:33→13:47)
[2020-01-30] MEDS: *HR* Midazolam HCl 5 MG/5 ML VIAL IVP PRN ×3 (13:33→13:43)
[2020-01-30] MEDS: *HR* Rivaroxaban 10 MG TABLET PO SCH (16:46)
[2020-01-30] MEDS: *HR* Amiodarone 200 MG TABLET PO SCH (20:30)
[2020-01-30] MEDS: hydrOXYzine pamoate 25 MG CAPSULE PO PRN (23:58)
[2020-01-31] MEDS ORDERED: Melatonin 3 MG TABLET PO PRN (01:33)
[2020-01-31 01:38] LABS: Mean Platelet Volume 9.4 fL (9.4-12.4)
[2020-01-31 01:39] LABS: Hematocrit 31.3 % (35.3-44.9); Mean Corpuscular HGB Conc 28.8 g/dL (31.6-35.5); Mean Corpuscular Hemoglobin 27.8 pg (28.0-33.3); Mean Corpuscular Volume 96.6 fL (83.0-100.0); Platelet Count 311 K/mcL (140-400); Red Blood Count 3.24 M/mcL (3.82-4.97); Red Cell Distribution Width 14.5 % (11.5-14.5); White Blood Count 9.8 K/mcL (4.3-11.1)
[2020-01-31 01:57] LABS: BUN/Creatinine Ratio 35 (6-26); Blood Urea Nitrogen 29 mg/dL (8-23); Calcium 9.2 mg/dL (8.6-10.3); Carbon Dioxide 42 mEq/L (23-29); Chloride 87 mEq/L (98-107); Glucose 275 mg/dL (70-105); Osmolality,Calculated 300 (280-300); Potassium 3.3 mEq/L (3.5-5.1); Sodium 137 mEq/L (136-145); eGFR For African Americans > 60 (> 60); eGFR For Non-African Americans > 60 (> 60)
[2020-01-31] MEDS: *HR* HYDROcodone/Acet 7.5/325 mg TABLET PO PRN (02:36)
[2020-01-31] MEDS: Levalbuterol Neb 0.63 MG/3 ML IH SCH ×2 (04:23→10:44)
[2020-01-31] MEDS: Ipratropium Neb 0.5 MG NEBULIZER IH SCH ×2 (04:23→10:44)
[2020-01-31] MEDS: predniSONE 20 MG TABLET PO SCH (08:08)
[2020-01-31] MEDS: Furosemide 20 MG TABLET PO SCH (08:09)
[2020-01-31] MEDS: Aspirin 81 MG TAB.CHEW PO SCH (08:09)
[2020-01-31] MEDS: Gabapentin 300 MG CAPSULE PO SCH (08:09)
[2020-01-31] MEDS: *HR* Amiodarone 200 MG TABLET PO SCH (08:09)
[2020-01-31] MEDS: polyethylene glycoL 3350 17 GM POWD.PACK PO SCH (08:10)
[2020-01-31] MEDS ORDERED: *HR* Amiodarone 200 MG TABLET PO SCH (09:00)
[2020-01-31] MEDS: Budesonide/Formoterol 160/4.5 1 PUFF INH IH SCH (10:44)
[2020-01-31 11:35] VITALS: BP 113/58
[2020-02-01] MEDS ORDERED: *HR* Amiodarone 200 MG TABLET PO SCH (09:00)
== END 2020-01-31 13:42 | disposition home health service (06) | DRG 192 ==
LOC: ICNU 03:09 → INTOOBSV 03:09 → SUATTDRO 14:42 → 2NNU 01-29 03:49
PROVIDERS: ADMIT Internal Medicine Cardiovascular Disease; ATTEND Family Medicine

== ENCOUNTER 2020-03-16 05:04 | Inpatient (IN) ==
[2020-03-16] MEDS ORDERED: Perflutren Lipid Microsphere 1.3 ML in 0.9 % Sodium Chloride 8.7 ML IVP PRN (07:26)
[2020-03-16] MEDS ORDERED: Naloxone 0.4 MG/ML INJ IVP PRN (07:30)
[2020-03-16] MEDS ORDERED: Artificial Tears SOLN 15 ML BOTTLE BOTH EYES PRN (07:36)
[2020-03-16 07:38] LABS: ABG Base Excess 13 mEq/L (-2 to 3); ABG HCO3 45 mEq/L (21-27); ABG Oxygen Saturation 84 % (95-98); ABG PCO2 116 mmHg (35-45); ABG PO2 65 mmHg (85-104); ABG TCO2 49 mEq/L (20-26); Blood Gas Modality ASSIST CONTROL; Blood Gas VT 500 cc
[2020-03-16] MEDS ORDERED: Dextrose Gel 15 GM/37.5 ML TUBE PO PRN ×2 (07:44)
[2020-03-16] MEDS ORDERED: D5% in Water 1,000 ML IVC PRN (07:44)
[2020-03-16] MEDS ORDERED: *HR* Dextrose 50 % in Water (Vial) 50 ML VIAL IVP PRN (07:44)
[2020-03-16] MEDS ORDERED: Ringers Solution, Lactated 1,000 ML ONE (07:47)
[2020-03-16] MEDS ORDERED: 0.9 % Sodium Chloride 250 ML ONE (07:58)
[2020-03-16] MEDS ORDERED: Vancomycin 1,250 MG/262.5 ML IV.SOLN IVPB ONE (08:00)
[2020-03-16] MEDS: Insulin LISPRO 300 UNITS/3 ML VIAL SUBQ SCH ×5 (08:12→23:42)
[2020-03-16] MEDS ORDERED: 0.9 % Sodium Chloride 1,000 ML ONE (08:31)
[2020-03-16] MEDS ORDERED: *HR* Heparin 5,000 UNIT/ML VIAL IVP PRN ×2 (08:54)
[2020-03-16] MEDS: Midazolam HCl 50 MG/100 ML IV.SOLN IVC SCH (09:02)
[2020-03-16] MEDS: FentaNYL (PF) 1,000 MCG/100 ML IV.SOLN IVC SCH (09:02)
[2020-03-16] MEDS: Artificial Tears SOLN 15 ML BOTTLE BOTH EYES SCH ×5 (09:16→23:13)
[2020-03-16] MEDS: Pantoprazole 40 MG VIAL IVP SCH (09:16)
[2020-03-16] MEDS: Chlorhexidine Rinse 15 ML MOUTHWASH MM SCH ×2 (09:16→20:20)
[2020-03-16] MEDS: Piperacillin/Tazobactam 3.375 GM in 0.9 % Sodium Chloride Mini Bag 100 ML IVPB SCH ×3 (09:16→23:17)
[2020-03-16] MEDS ORDERED: Furosemide 20 MG/2 ML VIAL IVP ONE (09:24)
[2020-03-16] MEDS: Ipratropium/Albuterol Neb 3 ML IH PRN ×3 (09:26→15:04)
[2020-03-16] MEDS ORDERED: Ipratropium/Albuterol Neb 3 ML ONE ×2 (09:37→10:54)
[2020-03-16 09:41] LABS: ABG Base Excess 14 mEq/L (-2 to 3); ABG HCO3 43 mEq/L (21-27); ABG Oxygen Saturation 100 % (95-98); ABG PCO2 79 mmHg (35-45); ABG PH 7.34 pH Units (7.32-7.45); ABG PO2 466 mmHg (85-104); ABG TCO2 45 mEq/L (20-26); Blood Gas Modality ASSIST CONTROL; Blood Gas VT 400 cc
[2020-03-16] MEDS: Norepinephrine 4 MG/254 ML IV.SOLN IVC SCH (10:29)
[2020-03-16] MEDS: Heparin 25,000UNIT/250ML 1/2NS 25,000 UNIT/250 ML IV.SOLN IVC SCH (10:29)
[2020-03-16 11:08] LABS: Hemoglobin 8.8 g/dL (11.5-15.4); Platelet Count 217 K/mcL (140-400); Red Cell Distribution Width 15.5 % (11.5-14.5)
[2020-03-16 11:10] LABS: Hematocrit 32.8 % (35.3-44.9); Mean Corpuscular HGB Conc 26.8 g/dL (31.6-35.5); Mean Corpuscular Hemoglobin 24.6 pg (28.0-33.3); Mean Corpuscular Volume 91.9 fL (83.0-100.0); Mean Platelet Volume 9.7 fL (9.4-12.4); Red Blood Count 3.57 M/mcL (3.82-4.97); White Blood Count 12.2 K/mcL (4.3-11.1)
[2020-03-16 11:28] LABS: INR 1.9; Prothrombin Time 21.3 Seconds (9.4-12.1)
[2020-03-16 11:31] LABS: Activated Partial Thrombo Time 28.1 Seconds (26.0-36.0)
[2020-03-16 11:43] LABS: Thyroid Stimulating Hormone 2.43 mcIU/mL (0.340-5.600)
[2020-03-16 11:52] LABS: Bacteria,Urine Few per hpf (None-Few); Bilirubin,Urine Negative (Negative); Blood,Urine Negative (Negative); Clarity,Urine Turbid (Clear); Color,Urine Yellow (Yellow); Glucose,Urine (UA) Normal (Normal); Ketones,Urine Negative (Negative); Leukocyte Esterase,Urine Trace (Negative); Mucus,Urine Few per lpf (None-Few); Nitrite,Urine Negative (Negative); Protein,Urine 100 mg/dL (Neg-Trace); RBC,Urine 0-3 per hpf (0-3); Specific Gravity,Urine 1.023 (1.010-1.025); Squamous Epithelial Cell,Urine Few per hpf (None-Few)
[2020-03-16 16:28] LABS: ABG Base Excess 18 mEq/L (-2 to 3); ABG HCO3 43 mEq/L (21-27); ABG Oxygen Saturation 97 % (95-98); ABG PCO2 52 mmHg (35-45); ABG PH 7.53 pH Units (7.32-7.45); ABG PO2 85 mmHg (85-104); ABG TCO2 45 mEq/L (20-26); Blood Gas Modality ASSIST CONTROL; Blood Gas VT 380 cc
[2020-03-16 16:33] LABS: Calcium 8.1 mg/dL (8.6-10.3); Potassium 3.6 mEq/L (3.5-5.1)
[2020-03-17] MEDS: FentaNYL (PF) 1,000 MCG/100 ML IV.SOLN IVC SCH (03:04)
[2020-03-17] MEDS: Artificial Tears SOLN 15 ML BOTTLE BOTH EYES SCH ×6 (03:40→23:34)
[2020-03-17] MEDS: Insulin LISPRO 300 UNITS/3 ML VIAL SUBQ SCH ×6 (03:40→23:34)
[2020-03-17 03:44] LABS: Basophils % 0.1 %; Eosinophils % 0.2 %; Hematocrit 27.2 % (35.3-44.9); Hemoglobin 7.9 g/dL (11.5-15.4); Immature Granulocytes % 0.2 % (0-4); Lymphocytes # 1.2 K/mcL (0.6-4.6); Lymphocytes % 13.5 %; Mean Corpuscular Hemoglobin 25.1 pg (28.0-33.3); Mean Corpuscular Volume 86.3 fL (83.0-100.0); Mean Platelet Volume 9.6 fL (9.4-12.4); Monocytes # 0.3 K/mcL (0.0-1.3); Monocytes % 3.5 %; Neutrophils # 7.1 K/mcL (1.6-8.9); Platelet Count 195 K/mcL (140-400); Red Blood Count 3.15 M/mcL (3.82-4.97); Red Cell Distribution Width 16.2 % (11.5-14.5); Segmented Neutrophils % 82.5 %; White Blood Count 8.6 K/mcL (4.3-11.1)
[2020-03-17] MEDS: Midazolam HCl 50 MG/100 ML IV.SOLN IVC SCH (03:45)
[2020-03-17 04:04] LABS: Albumin 2.9 g/dL (3.5-5.7); Albumin/Globulin Ratio 1.3 (1.1-2.2); Bilirubin,Direct 0.1 mg/dL (0.0-0.2); Bilirubin,Indirect 0.3 mg/dL (0.0-1.0); Bilirubin,Total 0.4 mg/dL (0.3-1.0); Calcium 8.1 mg/dL (8.6-10.3); Globulin 2.2 g/dL (2.4-3.5); Magnesium 1.6 mg/dL (1.6-2.6); Potassium 3.4 mEq/L (3.5-5.1); Total Protein 5.1 g/dL (6.4-8.9)
[2020-03-17 04:41] LABS: ABG Base Excess 21 mEq/L (-2 to 3); ABG HCO3 46 mEq/L (21-27); ABG Oxygen Saturation 95 % (95-98); ABG PCO2 54 mmHg (35-45); ABG PH 7.53 pH Units (7.32-7.45); ABG PO2 67 mmHg (85-104); ABG TCO2 47 mEq/L (20-26); Blood Gas Modality ASSIST CONTROL; Blood Gas VT 350 cc
[2020-03-17] MEDS: Norepinephrine 4 MG/254 ML IV.SOLN IVC SCH ×2 (05:40→20:16)
[2020-03-17] MEDS: Chlorhexidine Rinse 15 ML MOUTHWASH MM SCH ×2 (07:15→20:25)
[2020-03-17] MEDS: Piperacillin/Tazobactam 3.375 GM in 0.9 % Sodium Chloride Mini Bag 100 ML IVPB SCH ×3 (07:15→23:33)
[2020-03-17] MEDS: Heparin 25,000UNIT/250ML 1/2NS 25,000 UNIT/250 ML IV.SOLN IVC SCH (07:27)
[2020-03-17] MEDS: Pantoprazole 40 MG VIAL IVP SCH (07:27)
[2020-03-17] MEDS ORDERED: Vancomycin 1,250 MG/262.5 ML IV.SOLN IVPB SCH (08:00)
[2020-03-17 22:36] LABS: ABG Base Excess 19 mEq/L (-2 to 3); ABG HCO3 45 mEq/L (21-27); ABG Oxygen Saturation 100 % (95-98); ABG PCO2 58 mmHg (35-45); ABG PH 7.49 pH Units (7.32-7.45); ABG PO2 246 mmHg (85-104); ABG TCO2 46 mEq/L (20-26); Blood Gas Modality ASSIST CONTROL; Blood Gas VT 350 cc
[2020-03-18 04:00] LABS: Eosinophils % 0.1 %; Mean Platelet Volume 9.6 fL (9.4-12.4); Red Cell Distribution Width 17.3 % (11.5-14.5)
[2020-03-18 04:01] LABS: VBG Ionized Calcium 1.04 mmol/L (1.15-1.35)
[2020-03-18 04:01] LABS: Basophils % 0.2 %; Immature Granulocytes % 2.2 % (0-4); Lymphocytes # 0.7 K/mcL (0.6-4.6); Lymphocytes % 4.4 %; Mean Corpuscular Hemoglobin 24.9 pg (28.0-33.3); Mean Corpuscular Volume 85.6 fL (83.0-100.0); Monocytes # 0.8 K/mcL (0.0-1.3); Monocytes % 5.2 %; Neutrophils # 13.3 K/mcL (1.6-8.9); Platelet Count 199 K/mcL (140-400); Red Blood Count 3.62 M/mcL (3.82-4.97); Segmented Neutrophils % 87.9 %; White Blood Count 15.1 K/mcL (4.3-11.1)
[2020-03-18 04:28] LABS: Calcium 8.9 mg/dL (8.6-10.3); Magnesium 1.7 mg/dL (1.6-2.6); Phosphorous 3.9 mg/dL (2.7-4.5); Potassium 4.4 mEq/L (3.5-5.1)
[2020-03-18 04:41] LABS: ABG Base Excess 15 mEq/L (-2 to 3); ABG HCO3 42 mEq/L (21-27); ABG Oxygen Saturation 94 % (95-98); ABG PCO2 62 mmHg (35-45); ABG PH 7.44 pH Units (7.32-7.45); ABG PO2 72 mmHg (85-104); ABG TCO2 44 mEq/L (20-26); Blood Gas Modality ASSIST CONTROL; Blood Gas VT 350 cc
[2020-03-18] MEDS: Insulin LISPRO 300 UNITS/3 ML VIAL SUBQ SCH ×3 (04:42→13:01)
[2020-03-18] MEDS: Artificial Tears SOLN 15 ML BOTTLE BOTH EYES SCH ×3 (04:43→13:01)
[2020-03-18] MEDS: Chlorhexidine Rinse 15 ML MOUTHWASH MM SCH (07:49)
[2020-03-18] MEDS: Pantoprazole 40 MG VIAL IVP SCH (07:49)
[2020-03-18] MEDS: Piperacillin/Tazobactam 3.375 GM in 0.9 % Sodium Chloride Mini Bag 100 ML IVPB SCH (07:49)
[2020-03-18] MEDS: Midazolam HCl 50 MG/100 ML IV.SOLN IVC SCH (07:50)
[2020-03-18] MEDS: Norepinephrine 4 MG/254 ML IV.SOLN IVC SCH (08:45)
[2020-03-18] MEDS ORDERED: *HR* FentaNYL (PF) 100 MCG/2 ML VIAL IVP PRN (14:19)
[2020-03-18] MEDS ORDERED: *HR* LORazepam 2 MG/ML VIAL IVP PRN (14:19)
[2020-03-18] MEDS ORDERED: Atropine 1% Opth Drops 100 DROP/5 ML BOTTLE SL PRN (14:20)
[2020-03-18 15:27] VITALS: BP 110/52
== END 2020-03-18 18:06 | disposition expired | DRG 720 ==
LOC: ICNU 06:42
PROVIDERS: ADMIT Internal Medicine; ATTEND Internal Medicine